=== PATIENT | male | born 1955 | race African-American/Black ===

== ENCOUNTER 2021-11-03 18:03 | Inpatient (IN) | payer MEDICAID, SELFPAY ==
[~2021-11-03] VITALS: Ht 170.2 cm; Wt 77.6 kg
[2021-11-03 18:05] VITALS: BP 160/90
--- NOTE | 2021-11-03 18:11 | NUR ---
66 Y/O MALE BIBA FROM STREETS C/O RT KNEE PAIN AND RT SHOULDER. WITH DIZZINESS, NAUSEA, AND GEN WEAKNESS. DENIES ANY RECENT TRAUMA OR INJURY. 06/05 PAIN. PT STATES THIS IS A CHRONIC ISSUE BUT WORSENING TODAY. MEDHX: HTN NKA
--- NOTE | 2021-11-03 19:20 | NUR ---
RECEIVED REPORT FROM CRYS VALDEZ AND JOSIAH VALDEZ FOR CONTINUATION OF CARE.
--- NOTE | 2021-11-03 19:20 | NUR ---
Pt report given to LUCA RN. Transfer of care at this time.
[2021-11-03] MEDS ORDERED: IBUPROFEN 800 MG TAB PO ONE (19:35)
--- NOTE | 2021-11-03 19:39 | NUR ---
RADIOLOGY AT BEDSIDE
--- NOTE | 2021-11-03 20:20 | NUR ---
D/C CATHETER, TIP IN TACT, DEFLATED 10CC IN THE BALLOON.- PATIENT TOLERATED WELL.
[2021-11-03 20:47] LABS: BASOPHILS # (AUTO) 0.1 K/uL (0.00-0.22); BASOPHILS % (AUTO) 1.3 % (0.0-2.0); EOSINOPHILS # (AUTO) 0.1 K/uL (0-0.4); EOSINOPHILS % (AUTO) 0.6 % (0.0-4.0); HEMATOCRIT 20.4 % (36-52); LYMPHOCYTES # (AUTO) 1.3 K/uL (2.0-11.5); LYMPHOCYTES % (AUTO) 12.4 % (20.5-51.1); MEAN CORPUSCULAR HEMOGLOBIN 31 pg (27-31); MEAN CORPUSCULAR HGB CONC 33 g/dL (33-37); MEAN CORPUSCULAR VOLUME 92.7 fL (80-94); MONOCYTES # (AUTO) 0.9 K/uL (0.8-1.0); MONOCYTES % (AUTO) 8.7 % (1.7-9.3); NEUTROPHILS # (AUTO) 8.3 K/uL (1.8-7.7); PLATELET COUNT (AUTO) 489 K/uL (140-450); RED CELL DISTRIBUTION WIDTH 18.9 % (11.6-13.7); WHITE BLOOD COUNT (AUTO) 10.8 K/uL (4.8-10.8)
--- NOTE | 2021-11-03 21:12 | NUR ---
UA COLLECTED AND WALKED TO LAB
[2021-11-03 21:20] LABS: APPEARANCE,URINE HAZY (CLEAR); BILIRUBIN,URINE NEGATIVE (NEGATIVE); BLOOD, URINE 3+ (NEGATIVE); COLOR,URINE YELLOW (YELLOW); LEUKOCYTE ESTERASE ,URINE 3+ (NEGATIVE); NITRITE, URINE NEGATIVE (NEGATIVE); UGLUCOSE NEGATIVE (NEGATIVE)
--- NOTE | 2021-11-03 21:30 | NUR ---
Mellisa mills in [facility] - 11/03/21 at 2154 by ANNAMARIE MARYSE MOJICA, REMOVED SOILED CLOTHES
--- NOTE | 2021-11-03 21:30 | NUR ---
PROVIDED EZE CARE, REMOVED SOILED CLOTHES
[2021-11-03 21:34] LABS: ALBUMIN 1.7 g/dL (3.4-5.0); ANION GAP 10.6 (8-16); CARBON DIOXIDE 25.3 mmol/L (21-32); CREATININE 0.6 mg/dL (0.6-1.3); MAGNESIUM 1.4 mg/dL (1.8-2.4); POTASSIUM 3.9 mmol/L (3.5-5.1); TOTAL BILIRUBIN 0.6 mg/dL (0.0-1.0)
[2021-11-03 21:35] LABS: RBC,URINE 0-5 /HPF (0-5); WBC,URINE 0-5 /HPF (0-5)
--- NOTE | 2021-11-03 21:35 | NUR ---
# 16 FR Urinary catheter inserted utilizing sterile technique. Immediate return of 20 ml urine noted. Urine sample collected and sent to lab. Pt tolerated procedure well.
[2021-11-03] MEDS ORDERED: MAGNESIUM OXIDE 400 MG TAB PO ONE (21:40)
[2021-11-03] MEDS ORDERED: SULFAMETH/TRIMETH DS 800/160MG 1 TAB PO ONE (21:40)
[2021-11-03 22:23] LABS: HEMOGLOBIN 6.7 g/dL (12.0-18.0)
[2021-11-03 23:43] LABS: PROTHROMBIN TIME 12.1 secs (10.8-13.4)
[2021-11-04] VITALS (11 sets, daily range): BP systolic 91–136; BP diastolic 52–73
--- NOTE | 2021-11-04 00:10 | NUR ---
IV ESTABLISHED , 20G RIGHT FA
--- NOTE | 2021-11-04 00:14 | NUR ---
KVNG COLLECTED AND WALKED TO LAB
--- NOTE | 2021-11-04 00:50 | NUR ---
wounds on the sacral and right buttocks present on arrival. wound care of 40mls of NS and placed nonadherent dressing on sacram. patient tolerated well.
--- NOTE | 2021-11-04 01:14 | NUR ---
Patient will be admitted to care of Jeanine GUADALUPE. Admited to telemetry. Will go to room 104B. Belongings list completed. Report to Christine VALDEZ.
--- NOTE | 2021-11-04 01:40 | NUR ---
PATIENT ARRIVED VIA GURNEY. PT IS AAOX4 IRISH SPEAKING ONLY. RESPIRATIONS ARE EQUAL AND UNLABORED ON ROOM AIR. SKIN IS WARM, DRY NON INTACT. R/L BUTTOCK WOUND. PICTURES TAKEN IN ER. BLE EDEMA +4 ON L LEG AND +3 ON R LEG. ABD ROUND AND SOFT. LBM 11/03. MRSA SWAB OBTAINED AND SENT TO LAB. VSS. DX UTI, ANEMIA. PER PT ABLE TO WALK BUT HAS GEN WEAKNESS AND DIZZINESS. PER PT USES WALKER. PT IS HOMELESS LIVES IN HIS CAR. WISHES TO TALK TO SW FOR PLACEMENT. EDUCATED PT BLOOD IS READY PER PT HE IS A HOLINESS DOES NOT WANT ANY BLOOD TX. PT THOUGHT HE WAS GOING TO BE TRANSFUSED FROM HIS OWN BLOOD. EDUCATED PT ON REASON BLOOD TX NEEDED PT VERBALIZED UNDERSTANDING. PER PT IF HGB KEEPS DROPPING HE MIGHT CHANGE HIS MIND. ORIENTED PT TO ROOM, STAFF, CALL LIGHT AND VISITING HOURS. ALL NEEDS MET. WILL CONTINUE TO MONITOR.
--- NOTE | 2021-11-04 01:49 | NUR ---
The patient's care was reviewed and supervised by Ya Young RN, RN.
--- NOTE | 2021-11-04 04:18 | NUR ---
VITAL SIGNS ARE WITHIN NORMAL LIMITS. ALL SAFETY MEASURES ARE IN PLACE. WILL CONTINUE TO MONITOR.
--- NOTE | 2021-11-04 06:03 | NUR ---
PATIENT WAS CLEANED AND REPOSITION FOR COMFORT. ALL NEEDS MET. WILL CONTINUE TO MONITOR.
--- NOTE | 2021-11-04 07:26 | NUR ---
GAVE BEDSIDE REPORT TO DAY RN. PT ENDORSED IN STABLE CONDITION.
--- NOTE | 2021-11-04 07:27 | NUR ---
RECEIVED PATIENT FROM HARVEST CREW SUPERVISOR FOR CONTINUITY OF CARE. PATIENT IS A/A/O X4. RESPIRATORY EVEN AND UNLABORED, ON ROOM AIR. NO SIGN OF DISTRESS NOTED. SKIN WARM, DRY, NON DIAPHORETIC. IV ON LEFT FA 20G, INTACT AND PATENT, SALINE LOCK. PATIENT COMPLAINS OF PAIN ON ADAM KNEE 06/05. DENIES ANY CHEST PAIN OR SOB. ABLE TO MAKE NEED KNOWN. PLAN OF CARE DISCUSSED, PATIENT VERBALIZED UNDERSTANDING. WILL NOTIFY MD REGARDING PAIN AND PT REFUSED BLOOD TRANSFUSION. CALL LIGHT WITHIN REACH. WILL CONTINUE TO MONITOR.
--- NOTE | 2021-11-04 09:12 | NUR ---
PATIENT HAS BEEN SCREENED AND CATEGORIZED HIGH NUTRITION RISK. PATIENT WILL BE SEEN WITHIN 1-2 DAYS OF ADMISSION. /08/17 RECEIVED CONSULT AND REFERRAL FOR UNHEALED WOUNDS GEOVAN[address] BUTT RD
[2021-11-04] MEDS ORDERED: SODIUM PHOS / POTASSIUM PHOS 1 PKT PDR PO PRN (09:20)
[2021-11-04] MEDS ORDERED: POTASSIUM CHLORIDE 10 MEQ TABER PO PRN (09:20)
[2021-11-04] MEDS ORDERED: DOCUSATE SODIUM 100 MG GELCAP PO PRN (09:20)
[2021-11-04] MEDS ORDERED: ONDANSETRON 4 MG/2 ML VIAL IM/IVP PRN (09:20)
[2021-11-04] MEDS: PANTOPRAZOLE 40 MG TABEC PO SCH (09:44)
[2021-11-04] MEDS: MORPHINE SULFATE 2 MG/ML SYR IVP PRN (09:45)
[2021-11-04] MEDS: MAGNESIUM OXIDE 400 MG TAB PO PRN (09:45)
--- NOTE | 2021-11-04 09:45 | NUR ---
SCHEDULE MEDICATIONS GIVEN WITH EDUCATION, PATIENT VERBALIZED UNDERSTANDING. PATIENT TOLERATED WELL. NO SIGN OF DISTRESS NOTED. PRECAUTION IN PLACE. CALL LIGHT WITHIN REACH. WILL CONTINUE TO MONITOR.
[2021-11-04 10:30] LABS: ANION GAP 10.5 (8-16); CARBON DIOXIDE 28.1 mmol/L (21-32); CREATININE 1.1 mg/dL (0.6-1.3); POTASSIUM 4.6 mmol/L (3.5-5.1)
[2021-11-04 10:34] LABS: MAGNESIUM 1.8 mg/dL (1.8-2.4); PHOSPHORUS 4.3 mg/dL (2.5-4.9)
[2021-11-04 10:40] LABS: BASOPHILS # (AUTO) 0.1 K/uL (0.00-0.22); BASOPHILS % (AUTO) 1.6 % (0.0-2.0); EOSINOPHILS % (AUTO) 0.7 % (0.0-4.0); HEMATOCRIT 29.8 % (36-52); HEMOGLOBIN 9.6 g/dL (12.0-18.0); LYMPHOCYTES # (AUTO) 1.5 K/uL (2.0-11.5); LYMPHOCYTES % (AUTO) 28.6 % (20.5-51.1); MEAN CORPUSCULAR HEMOGLOBIN 31 pg (27-31); MEAN CORPUSCULAR HGB CONC 32 g/dL (33-37); MEAN CORPUSCULAR VOLUME 95.6 fL (80-94); MONOCYTES # (AUTO) 0.2 K/uL (0.8-1.0); MONOCYTES % (AUTO) 4.2 % (1.7-9.3); NEUTROPHILS # (AUTO) 3.4 K/uL (1.8-7.7); NEUTROPHILS % (AUTO) 64.9 % (42.2-75.2); PLATELET COUNT (AUTO) 746 K/uL (140-450); RED BLOOD CELL COUNT(AUTO) 3.11 MIL/uL (4.20-6.10); RED CELL DISTRIBUTION WIDTH 18.3 % (11.6-13.7); WHITE BLOOD COUNT (AUTO) 5.2 K/uL (4.8-10.8)
[2021-11-04 11:46] LABS: AMYLASE 50 U/L (25-115); LIPASE 17 U/L (73-393)
--- NOTE | 2021-11-04 11:46 | NUR ---
WOUND CARE EVALUATION NOTE: SKIN ASSESSMENT DONE TO THIS 66 Y/O PT. AAX4 AMBULATORY, WALKS TO BR AND BACK TO HIS BED, ABLE TO TURN AND REPOSITION BY HIMSELF. PT ADMITTED WITH SEVERE MOISTURES ASSOCIATED DERMATITIS TO SACRAL AND BUTTOCK WITH LARGEST TO LEFT BUTTOCK 11X8CM PARTIAL THICKNESS SKIN LOSS, WOUND BED PINK AND PALE WITH SCATTERED FRICTION DENUDED SKIN. A SKIN GROWTH 1.5CM TALL TO RIGHT INNER BUTTOCK, DRY, EZE-WOUND SKIN INTACT. POC DISCUSSED WITH PRIMARY RN. RECOMMENDATIONS: CLEANSE SACRALCOCCYX AND BUTTOCKS WITH MILD SOAP AND WATER, PAT DRY, APPLY CALMOSEPTINE CR.BID AND PRN IF SOILING.
--- NOTE | 2021-11-04 11:57 | NUR ---
MD AT BEDSIDE TO EXPLAIN THE BENEFIT AND RISK OF PROCEDURE. TEXTILE ENGINEER #[id number], PATIENT SIGNED CONSENT FOR CT ABD/PELVIS WITH CONTRAST, RN SIGNED WITNESS. PATIENT VERBALIZED UNDERSTANDING AND HAS NO QUESTIONS.
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
--- NOTE | 2021-11-04 13:20 | NUR ---
PATIENT IS RESTING IN BED, NO SIGN OF DISTRESS NOTED. AROUSABLE TO VOICE. CALL LIGHT WITHIN REACH. WILL CONTINUE TO MONITOR.
--- NOTE | 2021-11-04 15:30 | NUR ---
PATIENT IS RESTING IN BED, NO SIGN OF DISTRESS NOTED. AROUSABLE TO VOICE. PRECAUTION IN PLACE. CALL LIGHT WITHIN REACH. WILL CONTINUE TO MONITOR.
[2021-11-04] MEDS: FERROUS SULFATE 325 MG TABEC PO SCH (16:06)
--- NOTE | 2021-11-04 16:06 | NUR ---
PATIENT REFUSED FERROUS SULFATE 325MG PO. EDUCATION GIVEN, PATIENT VERBALIZED UNDERSTANDING. CALL LIGHT WITHIN REACH. WILL CONTINUE TO MONITOR.
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
--- NOTE | 2021-11-04 18:49 | NUR ---
UPDATE PATIENT'S CONDITION TO DR GRIMALDO, DR RIZZO, TORAlthea D5NG @100ML/HR. WILL FOLLOW ORDER.
[2021-11-04 18:53] LABS: BASOPHILS # (AUTO) 0.1 K/uL (0.00-0.22); HEMATOCRIT 25.7 % (36-52); HEMOGLOBIN 8.3 g/dL (12.0-18.0); LYMPHOCYTES # (AUTO) 0.4 K/uL (2.0-11.5); LYMPHOCYTES % (AUTO) 5.1 % (20.5-51.1); MEAN CORPUSCULAR HEMOGLOBIN 30 pg (27-31); MEAN CORPUSCULAR HGB CONC 32 g/dL (33-37); MEAN CORPUSCULAR VOLUME 92.8 fL (80-94); MONOCYTES # (AUTO) 0.3 K/uL (0.8-1.0); MONOCYTES % (AUTO) 3.5 % (1.7-9.3); NEUTROPHILS # (AUTO) 7.3 K/uL (1.8-7.7); NEUTROPHILS % (AUTO) 90.4 % (42.2-75.2); PLATELET COUNT (AUTO) 567 K/uL (140-450); RED BLOOD CELL COUNT(AUTO) 2.77 MIL/uL (4.20-6.10); RED CELL DISTRIBUTION WIDTH 18.2 % (11.6-13.7); WHITE BLOOD COUNT (AUTO) 8.1 K/uL (4.8-10.8)
[2021-11-04] MEDS: DEXT 5% /NACL 0.9% 1,000 ML IV SCH (18:54)
--- NOTE | 2021-11-04 19:12 | NUR ---
ENDORSED PATIENT TO [place] NURSE FOR CONTINUITY OF CARE. PATIENT IS STABLE.
--- NOTE | 2021-11-04 19:15 | NUR ---
RECEIVED REPORT FROM DAY SHIFT NURSE, ASSUMED CARE. PT IN BED BREATHING AT RA O2 SAT 98% BREATHING EVEN AND UNLABORED WITH NO SIGNS OF ACUTE DISTRESS, BILATERAL CLEAR LUNG SOUNDS. PT A0X4 WITH COMPLAINT OF ABDOMINAL PAIN HE RATES 10/10 AND STATES HE HAS HAD FOR THE LAST YEAR, OFFERED PRN PAIN MEDICATION BUT PT REFUSED AT THIS MOMENT. L FOREARM 20 G IV SITE IN PLACE WITH D5 NS RUNNING AT 100 ML/HR. BILATERAL LOWER EXTREMITY PITTING EDEMA NOTED. ALL SAFETY MEASURES IN PLACE, CALL LIGHT WITHIN REACH, WILL CONTINUE TO CLOSELY MONITOR AND FOLLOW POC.
[2021-11-04 20:25] LABS: ALBUMIN 1.7 g/dL (3.4-5.0); ANION GAP 12.8 (8-16); CARBON DIOXIDE 24.8 mmol/L (21-32); CREATININE 1.1 mg/dL (0.6-1.3); POTASSIUM 4.6 mmol/L (3.5-5.1); TOTAL BILIRUBIN 0.6 mg/dL (0.0-1.0)
[2021-11-04] MEDS: PIPERACILLIN/TAZOBACTAM 3.375 GM in DEXTROSE 5% 50 ML IV SCH (20:29)
--- NOTE | 2021-11-04 22:00 | NUR ---
PT RESTING COMFORTABLY IN BED WITH EYES CLOSED IN NO APPARENT ACUTE DISTRESS. PT CONTINUES TO REFUSE PRN PAIN MEDICATION FOR ABDOMINAL PAIN EVEN THOUGH HE STATES HE ALWAYS HAS PAIN INCLUDING NOW. CONTINUES AT RA, BILATERAL EVEN BREATHING. BP 96/59. WILL CONTINUE TO CLOSELY MONITOR AND FOLLOW POC. ALL SAFETY MEASURES IN PLACE.
[2021-11-05] VITALS: BP 101/61
--- NOTE | 2021-11-05 00:13 | NUR ---
REPORT GIVEN TO MST NURSE FOR TRANSFER OF CARE. PT IN STABLE CONDITION WITH NO SIGNS OF ACUTE DISTRESS, BREATHING AT RA. ALL SAFETY MEASURES IN PLACE.
--- NOTE | 2021-11-05 00:15 | NUR ---
RCEIVED REPORT AT BEDSIDE.PT'S CONDITION IS STABLE.IVF INFUSING WELL.CALL LIGHT IN REACH.F/C PATENT.NO C/O PAIN NOW.WILL CONTINUE MONITORING.HR IS ST.
[2021-11-05] MEDS: MENTHOL/ZINC OXIDE 113 GM TUBE TP SCH ×2 (01:30→13:34)
--- NOTE | 2021-11-05 02:00 | NUR ---
FB=[id number]
[2021-11-05 02:13] LABS: BARBITURATE, URINE NEGATIVE ng/ml (NEG <=200); BENZODIAZEPINE, URINE POSITIVE ng/mL (NEG <=200); CANNABINOID, URINE NEGATIVE ng/mL (NEG <=50); COCAINE, URINE NEGATIVE ng/mL (NEG <=300); OPIATE, URINE POSITIVE ng/mL (NEG <=2000); PHENCYCLIDINE SCREEN,URINE NEGATIVE ng/mL (NEG <=25)
[2021-11-05 04:00] VITALS: BP 97/60
--- NOTE | 2021-11-05 04:00 | NUR ---
BP=97/60.PT IS ASYMPTOMATIC HR IS ST.SLEEPING.
[2021-11-05] MEDS: PIPERACILLIN/TAZOBACTAM 3.375 GM in DEXTROSE 5% 50 ML IV SCH ×4 (04:36→21:29)
[2021-11-05] MEDS: DEXT 5% /NACL 0.9% 1,000 ML IV SCH ×2 (06:00→15:20)
--- NOTE | 2021-11-05 06:36 | NUR ---
BP AT 0600 AM=.IVF IS IN PROGRESS.
--- NOTE | 2021-11-05 07:29 | NUR ---
REPORT GIVEN TO JC RN.PT'S CONDITION STABLE.
--- NOTE | 2021-11-05 07:30 | NUR ---
REPORT RECEIVED FROM PM SHIFT FOR CONTINUITY OF CARE, PT APPEARS ASLEEP, SAFETY MEASURES MAINTAINED, CALL LIGHT WITHIN REACH, WILL CONTINUE TO MONITOR
[2021-11-05 07:47] LABS: ANION GAP 10.6 (8-16); CREATININE 1.1 mg/dL (0.6-1.3); POTASSIUM 4.6 mmol/L (3.5-5.1)
[2021-11-05 08:00] VITALS: BP 93/59
[2021-11-05] MEDS: FERROUS SULFATE 325 MG TABEC PO SCH ×2 (08:52→17:00)
[2021-11-05] MEDS: TAMSULOSIN 0.4 MG CAP PO SCH (08:52)
[2021-11-05] MEDS: FINASTERIDE 5 MG TAB PO SCH (08:52)
[2021-11-05] MEDS: PANTOPRAZOLE 40 MG TABEC PO SCH (08:52)
[2021-11-05 09:09] LABS: HEMATOCRIT 25.8 % (36-52); HEMOGLOBIN 8.2 g/dL (12.0-18.0); MEAN CORPUSCULAR HEMOGLOBIN 30 pg (27-31); MEAN CORPUSCULAR HGB CONC 32 g/dL (33-37); MEAN CORPUSCULAR VOLUME 95.3 fL (80-94); PLATELET COUNT (AUTO) 516 K/uL (140-450); RED CELL DISTRIBUTION WIDTH 18.5 % (11.6-13.7); WHITE BLOOD COUNT (AUTO) 9.2 K/uL (4.8-10.8)
--- NOTE | 2021-11-05 10:05 | NUR ---
BP 98/62
[2021-11-05 11:17] LABS: BASOPHILS % (MANUAL) 0 % (0-2); BLASTS, MANUAL % 0 % (0-0); EOSINOPHILS % (MANUAL) 0 % (0-4); LYMPHOCYTES % (MANUAL) 4 % (20-46); METAMYELOCYTES % 0 % (0-0); MONOCYTES % (MANUAL) 3 % (5-12); MYELOCYTES % 0 % (0-0); OTHER CELLS,MANUAL % 0 (0-0); PROMYELOCYTES % 0 % (0-0)
[2021-11-05 11:20] LABS: BUFFY COAT SMEAR PREP 0
[2021-11-05 12:00] VITALS: BP 101/60
--- NOTE | 2021-11-05 13:52 | NUR ---
11/05/21 RD INITIAL ASSESSMENT COMPLETED PLEASE REFER TO NUTRITION ASSESSMENT UNDER CARE ACTIVITY FOR ESTIMATED NUTRITIONAL NEEDS. RD RECOMMENDATIONS: 1. IF/WHEN PT IS MEDICALLY STABLE TO START ORAL INTAKE, CONSIDER LOW NA DIET. 2. RD WILL F/U 2-3 DAYS; HIGH RISK JACE ALANIZ, RD
[2021-11-05 16:00] VITALS: BP 99/62
--- NOTE | 2021-11-05 18:00 | NUR ---
BP 126/74
--- NOTE | 2021-11-05 19:20 | NUR ---
RECIEVED PT AAOX4 , IV SITE INTACT AND PATENT , DENIES PAIN AT THIS TIME , NPO EXCEPT MEDS , URINE FC INTACT AND CONNECTING TO URINE BAG DRAINING BIT CONCENTRATED U.O . PLAN OF CARE DISCUSSED AND VERBALIZES UNDERSTANDING , CALL LIGHT WITHIN REACH , ON TELE MONITOR . WILL CONT. TO MONITOR .
--- NOTE | 2021-11-05 19:45 | NUR ---
HR 133 ON TELE MONITOR - RE CHECK BP 108/67 BP MEAN 80 , DENIES PAIN , AAOX4 , WILL CONT. TO MONITOR . IVF INFUSING WELL
[2021-11-05 20:00] VITALS: BP 108/67
[2021-11-05] MEDS: ACETAMINOPHEN 325 MG TAB PO PRN (21:45)
--- NOTE | 2021-11-05 22:05 | NUR ---
TELE MONITOR TRACING : HR 167 , 4 IN A ROW VENTRICULAR BEATS , FEBRILE 100.8 - INFORMED DR. DYE - PER DR. DYE CONT. TO MONITOR , CALL LIGHT WITHIN REACH.
[2021-11-06] VITALS: BP 123/67
--- NOTE | 2021-11-06 | NUR ---
TEMP RE CHECK 98.8 BP 128/70 - DENIES PAIN - WILL CONT. TO MONITOR . O2 SAT 95 %
--- NOTE | 2021-11-06 00:16 | NUR ---
BP RE CHECK 106/ 65 BP MEAN 76 , O2 SAT 100 % , FL 96 , FLACC 0 , TEMP RE CHECK 98 .7 - WILL CONT. TO MONITOR . Addendum: 11/06/21 at 0020 by Kimberley Lantigua RN THE ABOVE NURSE'S NOTE IS AN ERROR ENTRY - CARLEE
[2021-11-06] MEDS: DEXT 5% /NACL 0.9% 1,000 ML IV SCH ×3 (00:35→20:45)
[2021-11-06] MEDS: MENTHOL/ZINC OXIDE 113 GM TUBE TP SCH ×2 (01:12→13:00)
[2021-11-06 04:00] VITALS: BP 130/70
--- NOTE | 2021-11-06 04:00 | NUR ---
ROUNDS , NO SIGNS OG DISTRESS NOTED AT THIS TIME .
[2021-11-06] MEDS: PIPERACILLIN/TAZOBACTAM 3.375 GM in DEXTROSE 5% 50 ML IV SCH ×3 (06:00→20:36)
--- NOTE | 2021-11-06 06:00 | NUR ---
C/O PAIN WILL MEDICATE . , BP 130/90 O2 SAT 97 %
[2021-11-06] MEDS: HYDROcodone/APAP 5/325 MG 1 TAB TAB PO PRN (06:59)
[2021-11-06 07:09] LABS: BASOPHILS % (AUTO) 0.3 % (0.0-2.0); EOSINOPHILS % (AUTO) 0.2 % (0.0-4.0); HEMATOCRIT 26.4 % (36-52); HEMOGLOBIN 8.4 g/dL (12.0-18.0); LYMPHOCYTES # (AUTO) 0.6 K/uL (2.0-11.5); MEAN CORPUSCULAR HEMOGLOBIN 30 pg (27-31); MEAN CORPUSCULAR HGB CONC 32 g/dL (33-37); MONOCYTES # (AUTO) 0.4 K/uL (0.8-1.0); MONOCYTES % (AUTO) 2.9 % (1.7-9.3); NEUTROPHILS # (AUTO) 12.6 K/uL (1.8-7.7); PLATELET COUNT (AUTO) 433 K/uL (140-450); RED BLOOD CELL COUNT(AUTO) 2.78 MIL/uL (4.20-6.10); RED CELL DISTRIBUTION WIDTH 18.7 % (11.6-13.7); WHITE BLOOD COUNT (AUTO) 13.6 K/uL (4.8-10.8)
[2021-11-06 07:25] LABS: ALBUMIN 1.6 g/dL (3.4-5.0); ANION GAP 10.8 (8-16); CARBON DIOXIDE 26.4 mmol/L (21-32); MAGNESIUM 1.6 mg/dL (1.8-2.4); PHOSPHORUS 4.8 mg/dL (2.5-4.9); POTASSIUM 4.2 mmol/L (3.5-5.1); TOTAL BILIRUBIN 0.5 mg/dL (0.0-1.0)
--- NOTE | 2021-11-06 07:29 | NUR ---
ENDORSED - PT -STABLE - AWAKE .
--- NOTE | 2021-11-06 07:29 | NUR ---
RECEIVEDE REPORT FROM PM SHIFT JOSÉ MIGUEL PANTOJA FOR CONTINUITY OF CARE. PT. ALERT, AWAKE. VERBALLY RESPONSIVE. NO NOTED DISTRESS. BREATHINGS EVEN AND UNLABORED. ALL SAFETY PRECAUTIONS IN PLACE. CALL LIGHT WITHIN REACH. PT. IS WITH LOW H&H LEVEL. BUT PT. REFUSED FOR BLOOD TRANSFUSION PER REPORT. WILL CONTINUE TO MONITOR THE PT.
[2021-11-06 08:00] VITALS: BP 126/71
[2021-11-06 08:04] LABS: LYMPHOCYTES % (AUTO) 4.4 % (20.5-51.1); NEUTROPHILS % (AUTO) 92.2 % (42.2-75.2)
[2021-11-06] MEDS: FERROUS SULFATE 325 MG TABEC PO SCH ×2 (08:11→16:50)
[2021-11-06] MEDS: FINASTERIDE 5 MG TAB PO SCH (08:11)
[2021-11-06] MEDS: MAGNESIUM OXIDE 400 MG TAB PO PRN (08:12)
[2021-11-06] MEDS: TAMSULOSIN 0.4 MG CAP PO SCH (08:12)
[2021-11-06] MEDS: PANTOPRAZOLE 40 MG TABEC PO SCH (08:12)
--- NOTE | 2021-11-06 09:11 | NUR ---
PT. COMFORTABLY RESTING. NO S/SX OF DISTRESS NOTED. DENIES PAIN AT THIS TIME. ADMINISTERED SCHEDULED MEDICATIONS DUE. PT. TOLERATED WELL. ALSO MAGNESIUM OXIDE PO MGIVEN PRN ORDER FOR MAGNESIUM LEVEL 1.6 TODAY. . WILL CONTINUE TO MONITOR THE PT.
--- NOTE | 2021-11-06 09:17 | NUR ---
Faxed transfer requests via fax to [facility] and [facility] [place]. Awaiting call back
[2021-11-06 12:00] VITALS: BP 143/77
--- NOTE | 2021-11-06 13:50 | NUR ---
ROUNDS. PT. SLEEPING. WITH NO S/SX OF DISTRESS NOTED. RESP. NORMAL. SAFETY PRECAUTIONS IN PLACE. CALL LIGHT WITHI N REACH. WILL CONTINUE TO MONITOR THE PT.
--- NOTE | 2021-11-06 15:06 | NUR ---
[facility] [place] NO BED AVAILABILITY
--- NOTE | 2021-11-06 15:29 | NUR ---
PT. WAS USING RESTROOM. NOTED FOLY CATHETER WAS OUT. PER PT. SAID IT CAME OUT IT SELF. NO ANY BLEEDING OBSERVED. ALSO PT. PULLED OUT PIV ACCESS. CALLED UROLOGIST DR. FUENTES AND LEFT VOICE MAIL RE. PT'S FOLY CATHETER IS OUT. AWAITING FOR CALL BACK. WILL FOLLOW UP WITH .
--- NOTE | 2021-11-06 17:17 | NUR ---
PT. ALERT, AWAKE. STABLE WITH NC 2 L. NO ANY DISTRESS NOTED. REINSERTED PIV ACCESS ON LFA. PT. TOLERATED WELL. GOOD FLUSHED AND BLOOD RETURNED. CONT. MONITORING THE PT.
--- NOTE | 2021-11-06 17:23 | NUR ---
DR. FAY FUENTES UROLOGIST REPLIED BACK RE. PT'S FOLY CATH WAS OUT. SAID OK. AND TO MONITOR FOR PT. VOIDING. WILL MONITOR FOR IF PT. CAN VOID. AND WILL FOLLOW UP WITH .
[2021-11-06 17:53] VITALS: BP 131/66
--- NOTE | 2021-11-06 19:25 | NUR ---
ENDORSED REPORT TO PM SHIFT RN FOR CONTINUITY OF CARE. PT. STABLE.
--- NOTE | 2021-11-06 19:45 | NUR ---
RECEIVED BEDSIDE REPORT FROM DAY SHIFT NURSE, PATIENT IS AWAKE, RESPIRATION EVEN UNLABORED ON 2L NC O2. NO DISTRESS NOTED. SKIN IS WARM AND DRY. IV PATENT AND INTACT. NO MARTINEZ CATHETER NOTED. PLAN OF CARE DISCUSSED. ALL SAFETY MEASURES IN PLACE. BED IS AT LOW POSITION. CALL LIGHT WITHIN REACH WILL CONTINUE TO MONITOR.
[2021-11-06 20:00] VITALS: BP 116/88
--- NOTE | 2021-11-06 20:36 | NUR ---
ALL SCHEDULED MEDS WERE GIVEN PER ORDER. WILL CONTINUE TO MONITOR.
[2021-11-06] MEDS: MORPHINE SULFATE 2 MG/ML SYR IVP PRN (23:58)
--- NOTE | 2021-11-06 23:58 | NUR ---
PATIENT COMPLAINED OF LOWER ABDOMINAL PAIN 02/03. PRN PAIN MEDS GIVEN PER ORDER. CHECKED PATIENT BLADDER BY USING BLADDER SCAN, NOTED >510ML URINE. PER DR. FUENTES IF URINE IS >400 OKAY TO REINSERT MARTINEZ CATHETER.
[2021-11-07] VITALS: BP 144/68
--- NOTE | 2021-11-07 | NUR ---
PER DR. FUENTES IF PATIENT BLADDER SCAN RESULT >400 URINE RE-INSERT MARTINEZ CATHETER. INSERT MARTINEZ CATHETER 16FR, STERILE TECHNIQUE APPLIED. PATIENT TOLERATED IT WELL. YELLOW URINE NOTED DRAINING IN THE BAG. WILL CONTINUE TO MONITOR.
--- NOTE | 2021-11-07 01:00 | NUR ---
WOUND CARE PROVIDED
[2021-11-07] MEDS: MENTHOL/ZINC OXIDE 113 GM TUBE TP SCH ×2 (01:01→12:56)
--- NOTE | 2021-11-07 03:31 | NUR ---
MADE ROUNDS PATIENT SLEEPING RESPIRATION EVEN UNLABORED ON 2L NC O2. NO DISTRESS NOTED
[2021-11-07 04:00] VITALS: BP 136/80
--- NOTE | 2021-11-07 04:18 | NUR ---
PATIENT PULLED OUT HIS IV, NO ACTIVE BLEEDING NOTED. INSERT NEW ONE ON THE RIGHT UPPER FA 20G. WILL CONTINUE TO MONITOR
--- NOTE | 2021-11-07 04:28 | NUR ---
AM CARE PROVIDED
[2021-11-07] MEDS: PIPERACILLIN/TAZOBACTAM 3.375 GM in DEXTROSE 5% 50 ML IV SCH ×3 (04:36→20:27)
[2021-11-07 07:00] LABS: ALBUMIN 1.5 g/dL (3.4-5.0); CARBON DIOXIDE 27.2 mmol/L (21-32); POTASSIUM 4.2 mmol/L (3.5-5.1); TOTAL BILIRUBIN 0.5 mg/dL (0.0-1.0)
--- NOTE | 2021-11-07 07:23 | NUR ---
ENDORSED PATIENT TO DAY SHIFT NURSE FOR CONTINUITY OF CARE
--- NOTE | 2021-11-07 07:25 | NUR ---
RECEIVED REPORT FROM FORENSIC INVESTIGATOR NURSE FOR CONTINUITY OF CARE. PT AWAKE IN BED. ON O2 AT 2L NC, BREATHING SYMMETRICAL. PT NOTED WITH EPISODE OF REMOVING NC. DENIES PAIN AT THIS TIME. WITH RFA 22G RUNNING D5NS AT 100CC/HR. MARTINEZ CATHETER INTACT AND PATENT, DRAINING YELLOW URINE. BED ALARM ACTIVATED. CALL LIGHT WITHIN REACH. ALL SAFETY MEASURES IN PLACE.
[2021-11-07 07:33] LABS: BASOPHILS # (AUTO) 0.1 K/uL (0.00-0.22); BASOPHILS % (AUTO) 0.6 % (0.0-2.0); EOSINOPHILS % (AUTO) 0.2 % (0.0-4.0); HEMATOCRIT 24.9 % (36-52); LYMPHOCYTES # (AUTO) 0.4 K/uL (2.0-11.5); LYMPHOCYTES % (AUTO) 4.1 % (20.5-51.1); MEAN CORPUSCULAR HEMOGLOBIN 30 pg (27-31); MEAN CORPUSCULAR HGB CONC 32 g/dL (33-37); MEAN CORPUSCULAR VOLUME 94.3 fL (80-94); MONOCYTES # (AUTO) 0.5 K/uL (0.8-1.0); MONOCYTES % (AUTO) 4.4 % (1.7-9.3); NEUTROPHILS # (AUTO) 9.9 K/uL (1.8-7.7); NEUTROPHILS % (AUTO) 90.7 % (42.2-75.2); PLATELET COUNT (AUTO) 367 K/uL (140-450); RED BLOOD CELL COUNT(AUTO) 2.64 MIL/uL (4.20-6.10); RED CELL DISTRIBUTION WIDTH 18.6 % (11.6-13.7); WHITE BLOOD COUNT (AUTO) 10.9 K/uL (4.8-10.8)
[2021-11-07 08:00] VITALS: BP 135/79
[2021-11-07] MEDS: TAMSULOSIN 0.4 MG CAP PO SCH (08:23)
[2021-11-07] MEDS: FINASTERIDE 5 MG TAB PO SCH (08:23)
[2021-11-07] MEDS: FERROUS SULFATE 325 MG TABEC PO SCH ×2 (08:23→17:33)
[2021-11-07] MEDS: PANTOPRAZOLE 40 MG TABEC PO SCH (08:24)
[2021-11-07] MEDS: DEXT 5% /NACL 0.9% 1,000 ML IV SCH ×2 (08:27→16:45)
--- NOTE | 2021-11-07 08:31 | NUR ---
CLARIFIED WITH DR DYE , NPO ORDER IF OK TO GIVE MEDS. PER OKAY TO GIVE MEDS. WILL CHANGE ORDER TO NPO EXCEPT MEDS.
--- NOTE | 2021-11-07 11:30 | NUR ---
PT HAS EPISODES OF REMOVING SECURE TAPE FOR MARTINEZ CATHETER, EXPLAINED TO PT IMPORTANCE OF TAPE AND ENCOURAGED NOT TO REMOVE. ALSO REMOVING HIS HOSTLER HELPER LEADS. FREQUENT ROUNDS DONE, WILL CONTINUE TO MONITOR.
[2021-11-07 12:00] VITALS: BP 125/83
--- NOTE | 2021-11-07 14:18 | NUR ---
PATIENT STATES THAT HE HAS A PAST MEDICAL HX OF ASTHMA DEVELOPMENT TEAM LEAD TO OBTAIN HHN PRN THERAPY WITH DUONEB FOR SOB/WHEEZE
[2021-11-07] MEDS: METOPROLOL 25 MG TAB PO SCH ×2 (14:24→20:27)
[2021-11-07] MEDS: FUROSEMIDE 20 MG/2 ML VIAL IVP SCH (14:24)
[2021-11-07 16:00] VITALS: BP 120/77
--- NOTE | 2021-11-07 16:38 | NUR ---
PT HAS BEEN NPO SINCE 11/04 WITH NO POSSIBLE SURGERY AT THIS TIME, DR DYE MADE AWARE, ORDER FOR REGULAR DIET.
--- NOTE | 2021-11-07 17:10 | NUR ---
PT PULLED OUT HIS RFA IV LINE. RE-INSERTED NEW IV LINE ON LFA 22G, NO S/SX OF INFILTRATION NOTED. INSTRUCTED NOT TO PULL OUT.
--- NOTE | 2021-11-07 19:22 | NUR ---
ENDORSED PT TO KNITTING DEMONSTRATOR NURSE. PT IN STABLE CONDITION
--- NOTE | 2021-11-07 19:30 | NUR ---
RECEIVED BEDSIDE REPORT FROM DAY SHIFT RN FOR CONTINUITY OF CARE. PT IS NOT IN ANY DISTRESS. BREATHING RHYTHMIC AND UNLABORED. FC IN PLACE DRAINING CLEAR YELLOW FLUID. IVF RUNNING PER MD ORDER. CALL LIGHT WITHIN REACH. ALL SAFETY MEASURES TAKEN. WILL CONTINUE TO MONITOR THE PT.
[2021-11-07 20:00] VITALS: BP 104/65
--- NOTE | 2021-11-07 20:30 | NUR ---
ALL DUE MEDS GIVEN. NO ADVERSE REACTION NOTED. WILL CONTINUE TO MONITOR THE PT.
--- NOTE | 2021-11-07 23:10 | NUR ---
PT IS SLEEPING IN BED COMFORTABLY. PT IS NOT IN ANY ACUTE DISTRESS. BREATHING RHYTHMIC AND UNLABORED. COMMUNICATION BOARD UPDATED. IVF RUNNING PER MD ORDER. CALL LIGHT WITHIN REACH. ALL SAFETY MEASURES TAKEN. WILL CONTINUE TO MONITOR THE PT.
--- NOTE | 2021-11-07 23:40 | NUR ---
PT IV BECAME INFILTRATED. NEW IV INSERTED 22 GAUGE RIGHT FOREARM. IVF RUNNING PER MD ORDER. PT HAS NO COMPLAINTS AT THIS TIME. DENIES PAIN. ALL SAFETY MEASURES TAKEN. WILL CONTINUE TO MONITOR THE PT.
[2021-11-08] VITALS (8 sets, daily range): BP systolic 102–154; BP diastolic 60–97
[2021-11-08] MEDS: MENTHOL/ZINC OXIDE 113 GM TUBE TP SCH ×2 (01:11→17:00)
[2021-11-08] MEDS: DEXT 5% /NACL 0.9% 1,000 ML IV SCH ×3 (02:45→20:14)
[2021-11-08] MEDS: PIPERACILLIN/TAZOBACTAM 3.375 GM in DEXTROSE 5% 50 ML IV SCH ×2 (04:41→13:05)
--- NOTE | 2021-11-08 05:00 | NUR ---
PT PULLED OUT IV. CATHETER INTACT. NEW IV INSERTED ON LEFT FOREARM 22 GAUGE.
[2021-11-08 06:53] LABS: BASOPHILS % (AUTO) 0.1 % (0.0-2.0); EOSINOPHILS % (AUTO) 0.1 % (0.0-4.0); HEMATOCRIT 25.6 % (36-52); LYMPHOCYTES # (AUTO) 0.7 K/uL (2.0-11.5); LYMPHOCYTES % (AUTO) 6.6 % (20.5-51.1); MEAN CORPUSCULAR HEMOGLOBIN 30 pg (27-31); MEAN CORPUSCULAR HGB CONC 32 g/dL (33-37); MEAN CORPUSCULAR VOLUME 94.3 fL (80-94); MONOCYTES # (AUTO) 0.7 K/uL (0.8-1.0); MONOCYTES % (AUTO) 6.2 % (1.7-9.3); NEUTROPHILS # (AUTO) 9.6 K/uL (1.8-7.7); PLATELET COUNT (AUTO) 411 K/uL (140-450); RED BLOOD CELL COUNT(AUTO) 2.71 MIL/uL (4.20-6.10); RED CELL DISTRIBUTION WIDTH 19.6 % (11.6-13.7)
--- NOTE | 2021-11-08 07:20 | NUR ---
ENDORSED PT TO DAY SHIFT RN FOR CONTINUITY OF CARE. PT IS STABLE.
[2021-11-08 07:25] LABS: ALBUMIN 1.7 g/dL (3.4-5.0); ANION GAP 11.6 (8-16); CARBON DIOXIDE 26.9 mmol/L (21-32); POTASSIUM 3.5 mmol/L (3.5-5.1); TOTAL BILIRUBIN 0.6 mg/dL (0.0-1.0)
--- NOTE | 2021-11-08 07:43 | NUR ---
RECEIVED REPORT FROM PAPER COATER NURSE FOR CONTINUITY OF CARE. PT AWAKE IN BED, NOTED TO BE MORE CONFUSED AND TALKING TO HIMSELF A LOT BUT DOESN'T MAKE SENSE, LEFT MESSAGE TO DR DYE. NOTED NC OFF, PT ON O2 NC AT 2L, REMINDED NOT TO REMOVE NC. DENIES PAIN AT THIS TIME. MARTINEZ CATHETER INTACT AND PATENT DRAINING YELLOW URINE. BED ALARM ACTIVATED. ALL SAFETY MEASURES IN PLACE. WILL CONTINUE TO MONITOR.
[2021-11-08] MEDS: TAMSULOSIN 0.4 MG CAP PO SCH (08:53)
[2021-11-08] MEDS: METOPROLOL 25 MG TAB PO SCH ×2 (08:53→20:23)
[2021-11-08] MEDS: FINASTERIDE 5 MG TAB PO SCH (08:53)
[2021-11-08] MEDS: FUROSEMIDE 20 MG/2 ML VIAL IVP SCH (08:53)
[2021-11-08] MEDS: FERROUS SULFATE 325 MG TABEC PO SCH ×2 (08:53→17:40)
[2021-11-08] MEDS: PANTOPRAZOLE 40 MG TABEC PO SCH (08:54)
--- NOTE | 2021-11-08 08:56 | NUR ---
DR DYE DOING ROUNDS, MADE AWARE THAT PT IS MORE CONFUSED TODAY AND SEEMS LETHARGIC. ALSO MADE AWARE OF URINE CULTURE SUSCEPTIBILITIES WITH NEW ORDER MADE AND CONSULT WITH DR AC.
[2021-11-08] MEDS ORDERED: LEVOFLOXACIN 750 MG/D5W PREMIX 150 ML IV SCH (09:00)
--- NOTE | 2021-11-08 09:30 | NUR ---
DR AC MADE AWARE OF CONSULT ORDER.
--- NOTE | 2021-11-08 11:30 | NUR ---
RAPID RESPONSE WAS CALLED BY STAFF PT WAS LETHARGIC BUT STILL RESPONSIVE WITH WITH LARGE FIRM DISTENDED ABDOMEN. PT ON O2 VIA NC SATING AT 98% BLOOD SUGAR 138, BP104/66, PT TACHYPNEIC WITH SHALLOW BREATHS. PT HAS LITTLE OUTPUT ON MARTINEZ CATHETER 300cc, PT HAS 2 SUSPECTED BLADDER DIVERTICULUM WITH POSSIBLE FISTULA TRACT TO THE UMBILICUS. CALLED DR FUENTES, CONSULTING UROLOGIST, DIDN'T ANSWER. CALLED DR DYE MADE AWARE STATED TO WAIT FOR DR FUENTES. LEFT MESSAGE TO DR FUENTES.
--- NOTE | 2021-11-08 11:49 | NUR ---
DR FUENTES STATED IT'S OKAY IF CATHETER IS DRAINING, CAN IRRIGATE IF NOT DRAINING.
--- NOTE | 2021-11-08 12:30 | NUR ---
PT IN BED AWAKE WITH CONFUSION, STILL LETHARGIC BUT PT MORE RESPONSIVE AT THIS TIME. STILL NOTED TALKING TO SELF A LOT. BREATHING SHALLOW AND TACHYPNEA, O2 SAT ON 2L NC IS 98-100% DENIES PAIN AT THIS TIME. OFFERED TO ASSIST WITH LUNCH BUT PT DOESN'T WANT TO EAT AT THIS TIME AND STATED LATER. FREQUENT CHECKS DONE, WILL CONTINUE TO MONITOR.
--- NOTE | 2021-11-08 12:35 | NUR ---
11/08/21 RD FOLLOW UP COMPLETED PLEASE REFER TO NUTRITION ASSESSMENT UNDER CARE ACTIVITY FOR ESTIMATED NUTRITIONAL NEEDS. 1. CONTINUE REGULAR DIET TOLERATED 2. RECOMMEND ENSURE CLEAR TID PER RD PROTOCOL -WILL PROVIDE 720 KCAL AND [address] DAILY 3. RD TO FOLLOW-UP 3-5 DAYS, MODERATE RISK GEOVANNA BUTT, RD
--- NOTE | 2021-11-08 14:25 | NUR ---
PT AWAKE IN BED, RESPONSIVE WITH CONFUSION, STILL LETHARGIC BUT RESPONDING MORE. PT STILL BREATHING SHALLOW, TACHYPNEA. ON O2 NC AT 2L, SATING AT 98% FREQUENT CHECKS DONE. OFFERED LUNCH AND ENSURE, STATED LATER. WILL CONTINUE TO MONITOR.
--- NOTE | 2021-11-08 15:00 | NUR ---
PT SEEN BY DR DODSON (PARTY PLAN SALES HOST/HOSTESS) WITH ORDER TO TRANSFER TO ICU AND INSERT PICC LINE. DR DYE MADE AWARE. HIGH MAN AND ICU NURSE MADE AWARE.
--- NOTE | 2021-11-08 15:30 | NUR ---
PT TRANSFERRED TO ICU BED 8, BEDSIDE REPORT GIVEN AT ICU. PT AWAKE, RESPONSIVE BUT STILL LETHARGIC, TACHYPNEIC AND TACHYCARDIAC.
--- NOTE | 2021-11-08 15:45 | NUR ---
RECEIVED REPORT FROM JOSÉ MIGUEL LANG.
--- NOTE | 2021-11-08 16:00 | NUR ---
PATIENT ORIENTED TO NAME, PLACE AND YEAR. ANSWERS QUESTIONS. MOVES ALL EXTREMETIES. HEART SOUNDS REGULAR. ST WITH PVC. O2 AT 2L/NC. SAO2 99%. ANTERIOR/LATERAL BREATH SOUNDS WITH CRACKLES. DIMINISHED IN RIGHT BASE. ABDOMEN DISTENDED, FIRM AND TENDER WITH PALPATION. NO BOWEL SOUNDS AUSCULTATED. MARTINEZ IN PLACE WITH YELLOW URINE. +DP PULSES WITH NO EDEMA NOTED. 22G SALINE LOCK IN LEFT FOREARM.
[2021-11-08] MEDS ORDERED: GENTAMICIN PER PHARMACY MC PRN (16:10)
[2021-11-08] MEDS: AMPICILLIN/SULBACTAM 3 GM in NACL 0.9% 100 ML IV SCH (18:40)
--- NOTE | 2021-11-08 19:04 | NUR ---
PT LAYING IN BED HOB ELEVATED, BS CLEAR DIMINISHED AT BASES, NO SIGNS OF RESPIRATORY DISTRESS NOTED AT THIS TIME. PT IS CURRENTLY SATING 96% ON 3LPM NASAL CANNULA. WILL CONTINUE TO MONITOR.
--- NOTE | 2021-11-08 19:15 | NUR ---
REPORT GIVEN TO JOSÉ MIGUEL REED.
--- NOTE | 2021-11-08 19:30 | NUR ---
RECEIVED BEDSIDE REPORT FROM MORNING NURSE. PATIENT AWAKE, WITH SPONTANEOUS EYE OPENING. PATIENT ALERT TO NAME, BIRTHDAY, PLACE, NOT ALERT TO TIME. BREATHING EVEN AND UNLABORED WITH OXYGEN OF 2L/NC. IV SITE ON LEFT FOREARM , PATENT AND INTACT WITH ONGOING AMPICILLIN ABX. MARTINEZ INTACT, DRAINING YELLOW CLOUDY URINE TO URINE BAG. NO COMPLAINTS AF PAIN AT THIS TIME. WILL CONTINUE TO MONITOR PATIENT.
[2021-11-08] MEDS: GENTAMICIN 120 MG in DEXTROSE 5% 100 ML IV SCH (20:19)
--- NOTE | 2021-11-08 20:30 | NUR ---
2 LUMEN PICC LINE INSERTED BY PICC LINE NURSE. XRAY DONE TO CONFIRM PLACEMENT AND RESULTED TO OKAY TO USE PER PICC LINE RN. PICC LINE PATENT WITH GOOD BLOOD RETURN NOTED, FLUSHED WITH NS. IV FLUID OF D5 NS AT 100ML/HR NOW RUNNING ON THE PICC LINE. WILL CONTINUE TO MONITOR PATIENT.
--- NOTE | 2021-11-08 22:25 | NUR ---
URINE SPECIMEN FOR URINE CULTURE COLLECTED AND SENT TO LAB.
[2021-11-09] VITALS (14 sets, daily range): BP systolic 81–120; BP diastolic 54–75
[2021-11-09] MEDS: AMPICILLIN/SULBACTAM 3 GM in NACL 0.9% 100 ML IV SCH ×4 (00:09→18:40)
[2021-11-09] MEDS: MENTHOL/ZINC OXIDE 113 GM TUBE TP SCH ×2 (00:11→13:25)
--- NOTE | 2021-11-09 00:41 | NUR ---
PATIENT ASLEEP ON BED. NO S/SX OF RESPIRATORY OR CARDIAC DISTRESS. MAINTAINED ON CARDIAC MONITORING.DUE IV ABX GIVEN ORDERED. NO COMPLAINTS OF PAIN. WILL CONTINUE TO MONITOR PATIENT.
--- NOTE | 2021-11-09 05:17 | NUR ---
MORNING CARE RENDERED, GOWN AND LINENS CHANGED. CHG BATH DONE, PERICARE AND CATHETER CARE PROVIDED. NO COMPLAINTS OF PAIN. WILL CONTINUE TO MONITOR PATIENT.
[2021-11-09 05:51] LABS: ALBUMIN 1.4 g/dL (3.4-5.0); ANION GAP 10.3 (8-16); CARBON DIOXIDE 24.2 mmol/L (21-32); POTASSIUM 3.5 mmol/L (3.5-5.1); TOTAL BILIRUBIN 0.3 mg/dL (0.0-1.0)
[2021-11-09 06:02] LABS: BASOPHILS % (AUTO) 0.1 % (0.0-2.0); EOSINOPHILS % (AUTO) 0.1 % (0.0-4.0); HEMATOCRIT 23.4 % (36-52); HEMOGLOBIN 7.2 g/dL (12.0-18.0); LYMPHOCYTES # (AUTO) 0.8 K/uL (2.0-11.5); LYMPHOCYTES % (AUTO) 9.5 % (20.5-51.1); MEAN CORPUSCULAR HEMOGLOBIN 30 pg (27-31); MEAN CORPUSCULAR HGB CONC 31 g/dL (33-37); MEAN CORPUSCULAR VOLUME 97.4 fL (80-94); MONOCYTES # (AUTO) 0.8 K/uL (0.8-1.0); MONOCYTES % (AUTO) 9.4 % (1.7-9.3); NEUTROPHILS # (AUTO) 6.5 K/uL (1.8-7.7); NEUTROPHILS % (AUTO) 80.9 % (42.2-75.2); PLATELET COUNT (AUTO) 300 K/uL (140-450); RED CELL DISTRIBUTION WIDTH 20.6 % (11.6-13.7); WHITE BLOOD COUNT (AUTO) 8.1 K/uL (4.8-10.8)
[2021-11-09] MEDS ORDERED: INSULIN LANTUS 100 UNITS/ML 10 ML VIAL SUBQ SCH (06:15)
--- NOTE | 2021-11-09 08:47 | NUR ---
Dr Garcia at Pt bedside to round with RN. Made aware of previous lab results with possible contamination with fluids and to add a Mg level. New orders noted and carried out.
[2021-11-09] MEDS: FERROUS SULFATE 325 MG TABEC PO SCH ×2 (09:04→17:00)
[2021-11-09] MEDS: TAMSULOSIN 0.4 MG CAP PO SCH (09:39)
[2021-11-09] MEDS: GENTAMICIN 120 MG in DEXTROSE 5% 100 ML IV SCH ×2 (09:44→22:00)
[2021-11-09] MEDS: FUROSEMIDE 20 MG/2 ML VIAL IVP SCH (09:46)
[2021-11-09] MEDS: METOPROLOL 25 MG TAB PO SCH ×2 (09:47→21:00)
[2021-11-09] MEDS: PANTOPRAZOLE 40 MG TABEC PO SCH (09:49)
[2021-11-09] MEDS: FINASTERIDE 5 MG TAB PO SCH (09:50)
--- NOTE | 2021-11-09 09:55 | NUR ---
WOUND CARE RE-EVALUATION NOTE: SKIN ASSESSMENT WITH BUTTOCKS MAD RESPONDING TO CURRENT TX.PT. IS TURN AND REPOSITION OFFLOAD SACRALCOCCYX AND HEELS. WILL CONTINUE CURRENT INTERVENTIONS.
[2021-11-09 10:09] LABS: BASOPHILS % (AUTO) 0.2 % (0.0-2.0)
[2021-11-09 10:16] LABS: ANION GAP 9.6 (8-16); CARBON DIOXIDE 28.2 mmol/L (21-32); CREATININE 1.1 mg/dL (0.6-1.3); POTASSIUM 3.8 mmol/L (3.5-5.1)
[2021-11-09 10:23] LABS: HEMATOCRIT 25.9 % (36-52); LYMPHOCYTES # (AUTO) 0.8 K/uL (2.0-11.5); LYMPHOCYTES % (AUTO) 9.2 % (20.5-51.1); MEAN CORPUSCULAR HEMOGLOBIN 30 pg (27-31); MEAN CORPUSCULAR HGB CONC 31 g/dL (33-37); MEAN CORPUSCULAR VOLUME 95.2 fL (80-94); MONOCYTES # (AUTO) 0.9 K/uL (0.8-1.0); MONOCYTES % (AUTO) 9.9 % (1.7-9.3); NEUTROPHILS # (AUTO) 7.1 K/uL (1.8-7.7); NEUTROPHILS % (AUTO) 80.7 % (42.2-75.2); PLATELET COUNT (AUTO) 325 K/uL (140-450); RED BLOOD CELL COUNT(AUTO) 2.72 MIL/uL (4.20-6.10); RED CELL DISTRIBUTION WIDTH 20.4 % (11.6-13.7); WHITE BLOOD COUNT (AUTO) 8.8 K/uL (4.8-10.8)
[2021-11-09] MEDS: DEXT 5% /NACL 0.9% 1,000 ML IV SCH (12:14)
--- NOTE | 2021-11-09 18:07 | NUR ---
Spoke to Dr Garcia. Was inquiring about CT procedure. CT was consulted, will come for pt as PO contrast is completed.
--- NOTE | 2021-11-09 19:25 | NUR ---
Transfer of care to Ya RN at this time. Made aware of pending radiology procedure with contrast completed
--- NOTE | 2021-11-09 20:15 | NUR ---
called RT at bedside as patient desaturating at 70% on 2L nasal cannula. patient currently having retractions and diminished lung sounds. increased o2 at 4L via NC. patient also currently AAOx1- self but currently cant keep eyes open. made aware.
[2021-11-09] MEDS: ALBUTEROL SULFATE/IPRATROPIU 3 ML SOL IH PRN (20:21)
--- NOTE | 2021-11-09 20:25 | NUR ---
PATIENT SUDDEN CHANGED IN LOC. AAOX0, PATIENT NO RESPONSE TO PAINFUL STIMULI, AND VERBAL STIMULI. PATIENT PUPILS DID NOT DILATE WHEN EYES PLACED IN THE EYES. PATIENT PULSE WEAK, AND THREADY WITH PULSE OF 20, IRREGULAR BREATHING EVEN WITH BREATHING TX BY IMMERSION METAL CLEANER.
--- NOTE | 2021-11-09 20:27 | NUR ---
INITIATED MIKE PERAZA
--- NOTE | 2021-11-09 20:34 | NUR ---
PATIENT INTUBATED AT 20:34 BY MD ASHRAF. TUBE PLACED AT 24 AT THE LIP.
[2021-11-09] MEDS ORDERED: PROPOFOL 1000 MG/100 ML PREMIX 100 ML IV ONE (21:09)
[2021-11-09] MEDS: PROPOFOL 1000 MG/100 ML PREMIX 100 ML IV PRN (21:15)
[2021-11-09] MEDS ORDERED: PROPOFOL 200 MG/20 ML VIAL IV SCH (21:20)
--- NOTE | 2021-11-09 21:21 | NUR ---
PT LAYING IN BED HOB ELEVATED, BS DIMINISHED/ EXP WHZ , TACHYPNEIC, O2 SATURATIONS 97%. ADMINISTERED HHN TX VIA SVN PLUS MASK. WILL CONTINUE TO MONITOR.
--- NOTE | 2021-11-09 21:32 | NUR ---
CODE BLUE CALLED AT BEDSIDE PT WAS INTUBATED FOR AIRWAY PROTECTION @ 2033. PT INTUBATED WITH 7.5mm ETT 25cm @ THE TEETH. SETTINGS PRVC VT450, RR14, FIO2 100%. PT IS SATING 96%. ANTERIOR AUSCULTATION REVEALED BS CLEAR/DIMINISHED, SX LARGE YELLOW THICK SECRETIONS. HOB ELEVATED, ALARMS ON AND AUDIBLE, AMBU BAG AT BEDSIDE, VENT PLUGGED INTO RED OUTLET. WILL CONTINUE TO MONITOR. Addendum: 11/09/21 at 2358 by Mak Hernández RT CORRECTION OF ETT PLACEMENT: ETT @ 22cm @ TEETH
[2021-11-09] MEDS ORDERED: NOREPINEPHRINE 4 MG/4 ML VIAL IV ONE (21:38)
[2021-11-09] MEDS: NACL 0.9% 1,000 ML IV SCH ×2 (22:27→22:36)
[2021-11-09 22:28] LABS: BASOPHILS % (AUTO) 0.4 % (0.0-2.0); HEMATOCRIT 24.1 % (36-52); HEMOGLOBIN 7.4 g/dL (12.0-18.0); LYMPHOCYTES # (AUTO) 0.5 K/uL (2.0-11.5); LYMPHOCYTES % (AUTO) 8.6 % (20.5-51.1); MEAN CORPUSCULAR HEMOGLOBIN 30 pg (27-31); MEAN CORPUSCULAR HGB CONC 31 g/dL (33-37); MEAN CORPUSCULAR VOLUME 96.1 fL (80-94); MONOCYTES # (AUTO) 0.5 K/uL (0.8-1.0); MONOCYTES % (AUTO) 7.5 % (1.7-9.3); NEUTROPHILS # (AUTO) 5.1 K/uL (1.8-7.7); NEUTROPHILS % (AUTO) 83.5 % (42.2-75.2); PLATELET COUNT (AUTO) 248 K/uL (140-450); RED BLOOD CELL COUNT(AUTO) 2.51 MIL/uL (4.20-6.10); WHITE BLOOD COUNT (AUTO) 6.1 K/uL (4.8-10.8)
--- NOTE | 2021-11-09 22:49 | NUR ---
CALLED [facility] TO REPORT FINDINGS TO DR. EDDY TO REPORT POST INTUBATION RESULTS. PH: [phone] PCO2: 69.5 PO2: 392.6 HCO3: 25.5 BE: -3.1 SETTINGS ARE PRVC VT450, RR14, PEEP+5, 100% FIO2. DR. EDDY INSTRUCTED TO INCREASE RR TO 24 AND TITRATE FIO2 TO KEEP O2> 92%. WILL CONTINUE TO MONITOR.
[2021-11-09 23:17] LABS: ALBUMIN 1.3 g/dL (3.4-5.0); ANION GAP 12.9 (8-16); CREATININE 1.4 mg/dL (0.6-1.3); POTASSIUM 3.9 mmol/L (3.5-5.1); TOTAL BILIRUBIN 0.3 mg/dL (0.0-1.0)
[2021-11-09] MEDS: NOREPINEPHRINE 8 MG in DEXTROSE 5% 250 ML IV PRN (23:58)
[2021-11-10] VITALS (26 sets, daily range): BP systolic 86–117; BP diastolic 53–68
[2021-11-10] MEDS: AMPICILLIN/SULBACTAM 3 GM in NACL 0.9% 100 ML IV SCH ×5 (00:03→23:45)
[2021-11-10] MEDS: MENTHOL/ZINC OXIDE 113 GM TUBE TP SCH ×2 (01:00→13:16)
--- NOTE | 2021-11-10 01:28 | NUR ---
PATIENT TO CT VIA GURNEY WITH ICE SELLER AND RN.
--- NOTE | 2021-11-10 02:27 | NUR ---
PER DETECTIVE NARCOTICS AND VICE TIRATED FIO2 TO 50%
--- NOTE | 2021-11-10 02:37 | NUR ---
SPOKE TO CHANI A TRANSFER CENTER FROM [facility] AND ASKED ABOUT UPDATE ON PATIENT AND REQUESTED TO HAVE MD TO MD CONSULTATION AND WAS GIVEN DIRECT NUMBER #[phone] PER CHANI LAST MD THAT ATTEMPTED TO SPEAK TO [facility] WAS MD DYE AND IS AWAITING CALL BACK.
[2021-11-10 06:31] LABS: BASOPHILS % (AUTO) 0.2 % (0.0-2.0); EOSINOPHILS % (AUTO) 0.1 % (0.0-4.0); HEMOGLOBIN 7.3 g/dL (12.0-18.0); LYMPHOCYTES # (AUTO) 0.9 K/uL (2.0-11.5); LYMPHOCYTES % (AUTO) 9.6 % (20.5-51.1); MEAN CORPUSCULAR HEMOGLOBIN 30 pg (27-31); MEAN CORPUSCULAR HGB CONC 32 g/dL (33-37); MEAN CORPUSCULAR VOLUME 94.3 fL (80-94); MONOCYTES # (AUTO) 0.5 K/uL (0.8-1.0); MONOCYTES % (AUTO) 5.8 % (1.7-9.3); NEUTROPHILS # (AUTO) 7.8 K/uL (1.8-7.7); NEUTROPHILS % (AUTO) 84.3 % (42.2-75.2); PLATELET COUNT (AUTO) 258 K/uL (140-450); RED BLOOD CELL COUNT(AUTO) 2.43 MIL/uL (4.20-6.10); RED CELL DISTRIBUTION WIDTH 20.6 % (11.6-13.7); WHITE BLOOD COUNT (AUTO) 9.2 K/uL (4.8-10.8)
[2021-11-10] MEDS: PROPOFOL 1000 MG/100 ML PREMIX 100 ML IV PRN ×3 (06:53→19:19)
[2021-11-10 06:58] LABS: MAGNESIUM 1.4 mg/dL (1.8-2.4); PHOSPHORUS 4.2 mg/dL (2.5-4.9)
[2021-11-10] MEDS: DEXT 5% /NACL 0.9% 1,000 ML IV SCH (07:14)
--- NOTE | 2021-11-10 07:30 | NUR ---
RECEIVED REPORT FROM BILLET CUTTER. PT IN BED WITH HOB ELEVATED. SEDATED RASS -3, OPENS EYES AT TIMES, NO TRACKING. ETT TO VENT: FIO2 40%, TV 450, R 24, PEEP 5. NO RESPIRATORY DISTRESS NOTED. WITH STEPHAN PICC RUNNING PROPOFOL AT 42MCG/KG/MIN, LEVOPHED 8MCG/MIN, D5 NS 50ML/HR. ABDOMEN LARGE AND DISTENDED, HYPOACTIVE. NPO AT THIS TIME. OGT INTACT AND PATENT, CONNECTED TO LOW CONTINUOUS SUCTION. MARTINEZ CATHETER INTACT, DRAINING DARK ASHLEY URINE. SKIN NOT INTACT, REFER TO SKIN ASSESSMENT. SAFETY PRECAUTIONS IN PLACE. WILL CONTINUE TO MONITOR
[2021-11-10 07:59] LABS: ALBUMIN 1.3 g/dL (3.4-5.0); ANION GAP 14.4 (8-16); CARBON DIOXIDE 23.2 mmol/L (21-32); CREATININE 1.3 mg/dL (0.6-1.3); POTASSIUM 3.6 mmol/L (3.5-5.1); TOTAL BILIRUBIN 0.4 mg/dL (0.0-1.0)
[2021-11-10] MEDS ORDERED: MAG SULF 2000 MG/WATER PREMIX 100 ML IV SCH (08:00)
[2021-11-10] MEDS: FERROUS SULFATE 325 MG TABEC PO SCH ×2 (08:00→16:37)
--- NOTE | 2021-11-10 08:40 | NUR ---
SEEN AND EXAMINED BY DR CHAPA, ORDERS NOTED AND CARRIED OUT
[2021-11-10] MEDS: METOPROLOL 25 MG TAB PO SCH (09:00)
--- NOTE | 2021-11-10 09:00 | NUR ---
DUE MEDS GIVEN VIA OGT
[2021-11-10] MEDS: TAMSULOSIN 0.4 MG CAP PO SCH (09:23)
[2021-11-10] MEDS: PANTOPRAZOLE 40 MG INJ VIAL IVP SCH (09:23)
[2021-11-10] MEDS: FINASTERIDE 5 MG TAB PO SCH (09:24)
--- NOTE | 2021-11-10 09:30 | NUR ---
ORAL CARE AND MARTINEZ CARE DONE. TURNED AND REPOSITIONED
--- NOTE | 2021-11-10 11:20 | NUR ---
SEDIMENTS NOTED ON MARTINEZ, MARTINEZ CATHETER FLUSHED ORDERED BY DR FUENTES
--- NOTE | 2021-11-10 13:30 | NUR ---
SEEN AND EXAMINED BY DR DODSON, NO NEW ORDERS
[2021-11-10] MEDS: ALBUTEROL SULFATE/IPRATROPIU 3 ML SOL IH PRN (13:47)
--- NOTE | 2021-11-10 15:08 | NUR ---
11/10/21 RD FOLLOW UP COMPLETED PLEASE REFER TO NUTRITION ASSESSMENT UNDER CARE ACTIVITY FOR ESTIMATED NUTRITIONAL NEEDS. 1. CONTINUE NPO PER MD 2. WHEN/IF MEDICALLY APPROPRIATE TO INITIATE TUBE FEEDING, RECOMMEND VITAL AF 1.2 WITH A GOAL RATE OF 50 ML/HR, FWF 150 ML Q6H OR PER MD -START AT 10 ML/HR AND INCREASE BY 10 ML Q4H TOLERATED -WILL PROVIDE 1440 KCAL AND 90 GM PROTEIN, MEETING 85% OF ESTIMATED KCAL AND 100% OF ESTIMATED PROTEIN NEEDS 3. IF EXTUBATED, RECOMMEND CONTINUING REGULAR DIET TOLERATED -RECOMMEND CLEAR LIQUID DIET BEFORE ADVANCING TO REGULAR 4. RD TO FOLLOW-UP 2-3 DAYS, HIGH RISK GEOVANNA BUTT RD
[2021-11-10] MEDS: GENTAMICIN 80 MG in DEXTROSE 5% 98 ML IV SCH (16:37)
--- NOTE | 2021-11-10 17:00 | NUR ---
EZE CARE, WOUND CARE, AND ORAL CARE DONE. TURNED AND REPOSITIONED
--- NOTE | 2021-11-10 19:25 | NUR ---
Received report on pt. Pt intubated on ventilator FiO2 40%, sedated with diprivan, on levophed drip and IV fluids. Pt in no acute signs of pain or distress. OGT in place to low continuous suction, noted light green output. Abdomen round, distended, tender to touch. Wade in place draining urine to gravity. IV site intact, patent, no infiltration noted. BLE and BUE with pitting edema.
[2021-11-10] MEDS: NOREPINEPHRINE 8 MG in DEXTROSE 5% 250 ML IV PRN (20:12)
[2021-11-11] VITALS (27 sets, daily range): BP systolic 91–123; BP diastolic 59–74
[2021-11-11] MEDS: DEXT 5% /NACL 0.9% 1,000 ML IV SCH ×2 (00:15→03:30)
[2021-11-11] MEDS: MENTHOL/ZINC OXIDE 113 GM TUBE TP SCH ×2 (00:20→13:00)
[2021-11-11] MEDS: PROPOFOL 1000 MG/100 ML PREMIX 100 ML IV PRN ×3 (01:53→22:53)
[2021-11-11] MEDS: GENTAMICIN 80 MG in DEXTROSE 5% 98 ML IV SCH ×2 (04:27→17:31)
[2021-11-11] MEDS: AMPICILLIN/SULBACTAM 3 GM in NACL 0.9% 100 ML IV SCH ×3 (05:35→18:00)
[2021-11-11 05:51] LABS: BASOPHILS % (AUTO) 0.2 % (0.0-2.0); EOSINOPHILS # (AUTO) 0.1 K/uL (0-0.4); EOSINOPHILS % (AUTO) 1.6 % (0.0-4.0); LYMPHOCYTES # (AUTO) 0.9 K/uL (2.0-11.5); LYMPHOCYTES % (AUTO) 12.7 % (20.5-51.1); MAGNESIUM 1.8 mg/dL (1.8-2.4); MEAN CORPUSCULAR HEMOGLOBIN 31 pg (27-31); MEAN CORPUSCULAR HGB CONC 34 g/dL (33-37); MEAN CORPUSCULAR VOLUME 91.2 fL (80-94); MONOCYTES # (AUTO) 0.4 K/uL (0.8-1.0); NEUTROPHILS # (AUTO) 5.6 K/uL (1.8-7.7); NEUTROPHILS % (AUTO) 79.5 % (42.2-75.2); PHOSPHORUS 2.8 mg/dL (2.5-4.9); PLATELET COUNT (AUTO) 211 K/uL (140-450); RED CELL DISTRIBUTION WIDTH 20.7 % (11.6-13.7)
[2021-11-11 06:03] LABS: ANION GAP 11.3 (8-16); POTASSIUM 3.3 mmol/L (3.5-5.1); TOTAL BILIRUBIN 0.5 mg/dL (0.0-1.0)
[2021-11-11 06:05] LABS: HEMOGLOBIN 6.8 g/dL (12.0-18.0)
--- NOTE | 2021-11-11 06:34 | NUR ---
Pt in no signs of pain or distress. Remains intubated on vent, sedated with diprivan. Levophed drip and IVF infusing. No BM noted, flatulence present. No other acute changes noted during shift. Pt noted with K 3.3, administered PRN med per MD order. Suction on hold for med administration. Addendum: 11/11/21 at 0639 by Agency Nurse 25, RN RN No signs of active bleeding noted. Noted light green OGT output from suction.
--- NOTE | 2021-11-11 07:00 | NUR ---
Received report from Barbara VALDEZ and assumed care of patient. Patient resting comfortably, NSR on the monitor, Levophed infusing to the PICC line at the R upper arm at 4 mcg/kg/min, D5NS @ 50 ml per/hr, Propofol at 30 mcg/kg/min. There is a 22 G to the L wrist area that is infusing NS at 5 TKO. IV and PICC line clean and intact. Patient on the ventilator AC 18, TV 450, FiO2 40 and Peep of 5. Will monitor, follow plan of care and report any abnormalities.
[2021-11-11] MEDS: FERROUS SULFATE 325 MG TABEC PO SCH ×2 (08:10→17:31)
[2021-11-11] MEDS: TAMSULOSIN 0.4 MG CAP PO SCH (08:11)
--- NOTE | 2021-11-11 08:30 | NUR ---
Dr. Garcia at bedside. Per Dr. Garcia, she will place orders for PT/INR, PTT, and IR paracentesis.
[2021-11-11 08:39] LABS: ALBUMIN 1.3 g/dL (3.4-5.0)
[2021-11-11] MEDS: FINASTERIDE 5 MG TAB PO SCH (09:37)
[2021-11-11] MEDS: PANTOPRAZOLE 40 MG INJ VIAL IVP SCH (09:37)
--- NOTE | 2021-11-11 10:51 | NUR ---
Order placed for Pt/INR, and PTT per Dr. Garcia. I called laboratory to advise them of the new order. Per aquatic life laborer they will send someone over right now.
--- NOTE | 2021-11-11 13:30 | NUR ---
Patient more alert when moved from side to side. He is able to nod his head. Patient back to sleep after settling him in bed. No grimace on face, body relaxed. No signs of acute distress noted, will continue to monitor.
--- NOTE | 2021-11-11 16:34 | NUR ---
sap technical architect arrived for blood samples. sap technical architect attempted to collect and was unsuccessful. Blood was collected via PICC line.
[2021-11-11 16:57] LABS: PROTHROMBIN TIME 12.2 secs (10.8-13.4)
--- NOTE | 2021-11-11 17:15 | NUR ---
Dr. Iverson at bedside.
--- NOTE | 2021-11-11 19:15 | NUR ---
Report endorsed to Supriya RN to transfer care of patient and end my care and shift. Patient NSR on the monitor, 100% O2 sat on the ventilator, no signs of acute distress noted, VSS with Levophed.
--- NOTE | 2021-11-11 19:20 | NUR ---
RECEIVED PATIENT ON BED, ORALLY INTUBATED AND VENTILATED AT 40% FIO2; SEDATED RASS -3 WITH CONTINOUS PROPOFOL DRIP AT 30 MCG/KG/MIN VIA PICC LINE TO RIGHT UPPER ARM, ALSO WITH IVF IN PROGRESS D5 NS AT 50 ML/HR AND ON LEVOPHED DRIP AT 4 MCG/MIN. ABDOMEN IS SOFT BUT DISTENDED; HYPOACTIVE BOWEL SOUNDS. WITH OGT IN PLACE; NPO.
--- NOTE | 2021-11-11 20:30 | NUR ---
TURNED AND REPOSITIONED PATIENT; ORAL CARE DONE WITH VAP KIT
--- NOTE | 2021-11-11 22:30 | NUR ---
HAD BM TO A SOFT BROWN STOOL; EVENING CARE DONE; LINEN CHANGED.
--- NOTE | 2021-11-11 23:37 | NUR ---
FIO2 TITRATED TO 28% AND TOLERATING WELL AT THIS TIME
[2021-11-12] VITALS (28 sets, daily range): BP systolic 88–130; BP diastolic 56–83
[2021-11-12] MEDS ORDERED: AMPICILLIN/SULBACTAM 3 GM VIAL ONE (00:45)
[2021-11-12] MEDS: AMPICILLIN/SULBACTAM 3 GM in NACL 0.9% 100 ML IV SCH ×5 (00:55→23:31)
[2021-11-12] MEDS: MENTHOL/ZINC OXIDE 113 GM TUBE TP SCH ×2 (01:00→13:00)
--- NOTE | 2021-11-12 02:00 | NUR ---
LEVOPED DRIP TITRATED DOWN TO 3 MCG/MIN.
--- NOTE | 2021-11-12 02:33 | NUR ---
FIO2 TITRATED TO 24% AND TOLERATING WELL SPO2 100% 10 MIN POST TITRATION WILL CONTINUE TO MONITOR
[2021-11-12] MEDS: GENTAMICIN 80 MG in DEXTROSE 5% 98 ML IV SCH (05:25)
--- NOTE | 2021-11-12 06:45 | NUR ---
[facility]SF[facility] CALLED AND SHE TOLD ME THAT THEIR DOCTOR HAD TALKED TO DR. CHAPA THAT THIS PATIENT WILL NO LONGER BE TAKEN FOR HIGHER LEVEL OF CARE, INSTEAD PATIENT CAN DO AN OUTPATIENT CONSULTATION TO [facility]OLOG[facility] OF DR. DORITA CHACKO TEL NO. [phone] IF PATIENT WILL BE DISCHARGE FROM HERE.
[2021-11-12 07:10] LABS: MAGNESIUM 1.6 mg/dL (1.8-2.4); PHOSPHORUS 2.5 mg/dL (2.5-4.9)
--- NOTE | 2021-11-12 07:15 | NUR ---
REPORT RECEIVED FROM JOSÉ MIGUEL FREEMAN.
--- NOTE | 2021-11-12 08:15 | NUR ---
PATIENT SEDATED. PUPILS 3MM AND REACTIVE. STEPHAN PICC LINE IN PLACE WITH D5NS AT 50ML/HR, LEVOPHED AT 2MCG/MIN, PROPOFOL AT 30MCG/KG/MIN. HEART SOUNDS REGULAR WITHOUT MURMUR. MONITOR SR. INTUBATED WITH VENT AT AC/PRVC MODE FIO2.024/VT450/RATE18/PEEP5. SAO2 100%. ANTERIOR/LATERAL BREATH SOUNDS DIMINISHED THROUGHOUT. ABDOMEN DISTENDED AND FIRM. HYPOACTIVE BOWEL SOUNDS. ORAL GASTRIC TUBE IN PLACE TO LOW CONTINUOUS SUCTION. DRAINAGE YELLOW/GREEN IN COLOR. MARTINEZ IN PLACE WITH YELLOW URINE. #22 GAUGE LEFT FOREARM REMOVED.
[2021-11-12] MEDS: TAMSULOSIN 0.4 MG CAP PO SCH (09:00)
[2021-11-12] MEDS: FERROUS SULFATE 325 MG TABEC PO SCH ×2 (09:00→17:25)
--- NOTE | 2021-11-12 09:30 | NUR ---
(11/12/21) RD FOLLOW UP COMPLETED PLEASE REFER TO NUTRITION PROGRESS NOTE UNDER CARE ACTIVITY FOR ESTIMATED NUTRITION NEEDS. RD RECOMMENDATIONS: 1. CONTINUE NPO PER MD 2. WHEN/IF MEDICALLY APPROPRIATE TO INITIATE TUBE FEEDING, RECOMMEND VITAL AF 1.2 WITH A GOAL RATE OF 50 ML/HR, FWF 150 ML Q6H OR PER MD -START AT 10 ML/HR AND INCREASE BY 10 ML Q4H TOLERATED -WILL PROVIDE 1440 KCAL AND 90 GM PROTEIN, MEETING 85% OF ESTIMATED KCAL AND 100% OF ESTIMATED PROTEIN NEEDS 3. IF EXTUBATED, RECOMMEND CONTINUING REGULAR DIET TOLERATED -RECOMMEND CLEAR LIQUID DIET BEFORE ADVANCING TO REGULAR 4. RD TO FOLLOW-UP 2-3 DAYS, HIGH RISK ALEXX KOHLER, MS, RDN
[2021-11-12] MEDS: FINASTERIDE 5 MG TAB PO SCH (09:36)
[2021-11-12] MEDS: PANTOPRAZOLE 40 MG INJ VIAL IVP SCH (09:36)
--- NOTE | 2021-11-12 10:15 | NUR ---
DR. GALLEGO HERE. PROPOFOL TURNED OFF FOR SEDATION VACATION. RT NOTIFIED FOR CPAP TRIAL.
[2021-11-12] MEDS ORDERED: MAG SULF 2000 MG/WATER PREMIX 50 ML IV SCH (11:00)
--- NOTE | 2021-11-12 11:00 | NUR ---
PATIENT SEDATION OFF. PATIENT PULLED OUT ORAL GASTRIC TUBE. REPLACED TO RIGHT NARE WITHOUT DIFFICULTY. PLACEMENT VERIFIED WITH XRAY. NGT PLACED TO LCS.
--- NOTE | 2021-11-12 11:30 | NUR ---
BP 109/69(82) LEVOPHED TURNED OFF.
--- NOTE | 2021-11-12 12:00 | NUR ---
CPAP TRIAL COMPLETE. SAO2 100%. NIF -12 PER RT. PLACED BACK TO AC/PRVC MODE. PROPOFOL RESTARTED AT 30MCG/KG/MIN.
[2021-11-12 12:15] LABS: ANION GAP 10.9 (8-16); CARBON DIOXIDE 25.7 mmol/L (21-32); CREATININE 0.8 mg/dL (0.6-1.3); POTASSIUM 3.6 mmol/L (3.5-5.1)
--- NOTE | 2021-11-12 13:30 | NUR ---
BP 88/60. PROPOFOL DECREASED TO 20MCG/KG/MIN. PATIENT SEDATE. OPENS EYES WITH TACTILE STIMULI.
[2021-11-12 14:21] LABS: BASOPHILS % (AUTO) 0.2 % (0.0-2.0); EOSINOPHILS # (AUTO) 0.2 K/uL (0-0.4); EOSINOPHILS % (AUTO) 2.1 % (0.0-4.0); HEMATOCRIT 25.6 % (36-52); HEMOGLOBIN 8.2 g/dL (12.0-18.0); LYMPHOCYTES # (AUTO) 1.3 K/uL (2.0-11.5); LYMPHOCYTES % (AUTO) 14.1 % (20.5-51.1); MEAN CORPUSCULAR HEMOGLOBIN 29 pg (27-31); MEAN CORPUSCULAR HGB CONC 32 g/dL (33-37); MEAN CORPUSCULAR VOLUME 91.6 fL (80-94); MONOCYTES # (AUTO) 0.4 K/uL (0.8-1.0); MONOCYTES % (AUTO) 4.8 % (1.7-9.3); NEUTROPHILS # (AUTO) 7.2 K/uL (1.8-7.7); NEUTROPHILS % (AUTO) 78.8 % (42.2-75.2); PLATELET COUNT (AUTO) 239 K/uL (140-450); RED BLOOD CELL COUNT(AUTO) 2.79 MIL/uL (4.20-6.10); RED CELL DISTRIBUTION WIDTH 20.2 % (11.6-13.7); WHITE BLOOD COUNT (AUTO) 9.1 K/uL (4.8-10.8)
[2021-11-12] MEDS ORDERED: SODIUM FERRIC GLUCONATE 125 MG in NACL 0.9% 100 ML IV SCH (15:00)
[2021-11-12] MEDS: DEXT 5% /NACL 0.9% 1,000 ML IV SCH (18:48)
--- NOTE | 2021-11-12 19:23 | NUR ---
REPORT GIVEN TO JOSÉ MIGUEL ESCOBEDO.
--- NOTE | 2021-11-12 20:15 | NUR ---
REPORT RECEIVED FROM RAMONE VALDEZ NOVEMBER FOR CONTINUITY OF CARE. PT LAYING IN BED RASS -1; WAKES TO VOICE/TOUCH. LUNG SOUNDS DIMINISHED THROUGHOUT. ETT TO VENT A/C PRVC FIO2 @24%, TV @450, RATE @18, AND PEEP @5. NGT TO R NARES ALREADY IN PLACE AND CONNECTED TO CONTINUOUS SUCTION. ABDOMEN IS DISTENDED AND FIRM. STEPHAN PICC ALREADY IN PLACE, PATENT AND INTACT, INFUSING PROPOFOL @20 MCG/KG/HR AND D5NS @50ML/HR. F/C ALREADY IN PLACE DRAINING TO GRAVITY. SAFETY MEASURES IN PLACE. INITIAL ASSESSMENT COMPLETED. BED IN LOWEST POSITION AND CALL LIGHT IN REACH. WILL CONTINUE TO MONITOR.
--- NOTE | 2021-11-12 23:13 | NUR ---
PT OBSERVED. CHEST RISE AND FALL PRESENT. RASS -2. TURNED, REPOSITIONED, AND ORAL CARE PROVIDED. WILL CONTINUE TO MONITOR.
[2021-11-13] VITALS (28 sets, daily range): BP systolic 87–119; BP diastolic 55–78
[2021-11-13] MEDS: MENTHOL/ZINC OXIDE 113 GM TUBE TP SCH ×2 (01:10→14:00)
--- NOTE | 2021-11-13 02:06 | NUR ---
PT OBSERVED. RESTING IN BED WITH EYES CLOSED. NO S/S OF RESP DISTRESS NOTED. VSS. PT TURNED AND REPOSITIONED. ORAL CARE PROVIDED. TOLERATED WELL. WILL CONTINUE TO MONITOR.
[2021-11-13] MEDS: PROPOFOL 1000 MG/100 ML PREMIX 100 ML IV PRN ×2 (04:29→23:01)
--- NOTE | 2021-11-13 04:31 | NUR ---
AM CARE, EZE CARE, ORAL CARE PROVIDED. TOLERATED WELL. WILL CONTINUE TO MONITOR.
[2021-11-13] MEDS: AMPICILLIN/SULBACTAM 3 GM in NACL 0.9% 100 ML IV SCH ×4 (05:50→23:32)
[2021-11-13 06:02] LABS: BASOPHILS % (AUTO) 0.2 % (0.0-2.0); EOSINOPHILS # (AUTO) 0.2 K/uL (0-0.4); EOSINOPHILS % (AUTO) 2.6 % (0.0-4.0); HEMATOCRIT 21.7 % (36-52); HEMOGLOBIN 7.2 g/dL (12.0-18.0); LYMPHOCYTES # (AUTO) 1.1 K/uL (2.0-11.5); LYMPHOCYTES % (AUTO) 13.6 % (20.5-51.1); MEAN CORPUSCULAR HEMOGLOBIN 30 pg (27-31); MEAN CORPUSCULAR HGB CONC 33 g/dL (33-37); MEAN CORPUSCULAR VOLUME 89.9 fL (80-94); MONOCYTES # (AUTO) 0.6 K/uL (0.8-1.0); MONOCYTES % (AUTO) 6.9 % (1.7-9.3); NEUTROPHILS # (AUTO) 6.3 K/uL (1.8-7.7); NEUTROPHILS % (AUTO) 76.7 % (42.2-75.2); PLATELET COUNT (AUTO) 257 K/uL (140-450); RED BLOOD CELL COUNT(AUTO) 2.41 MIL/uL (4.20-6.10); RED CELL DISTRIBUTION WIDTH 20.3 % (11.6-13.7); WHITE BLOOD COUNT (AUTO) 8.1 K/uL (4.8-10.8)
[2021-11-13 06:09] LABS: ANION GAP 9.5 (8-16); CARBON DIOXIDE 26.8 mmol/L (21-32); CREATININE 0.7 mg/dL (0.6-1.3); POTASSIUM 3.3 mmol/L (3.5-5.1)
[2021-11-13 06:12] LABS: PHOSPHORUS 2.7 mg/dL (2.5-4.9)
[2021-11-13] MEDS: MORPHINE SULFATE 2 MG/ML SYR IVP PRN (06:30)
--- NOTE | 2021-11-13 07:14 | NUR ---
REPORT GIVEN AT BEDSIDE TO DAYSHIFT RN FOR CONTINUITY OF CARE.
--- NOTE | 2021-11-13 07:15 | NUR ---
REPORT RECEIVED FROM PERSONAL SUPPORT WORKER RNFANNY.
--- NOTE | 2021-11-13 08:00 | NUR ---
PATIENT SEDATED BUT AROUSES TO TACTILE STIMULI. NODS TO QUESTIONS. HEART SOUNDS REGULAR. MONITOR SHOWS SR. STEPHAN PICC LINE IN PLACE WITH D5NS AT 50ML/HR AND PROPOFOL AT 20MCG/KG/MIN. ETT TO VENT AC/PRVC FIO2 .24/VT450/RATE 18/PEEP 5. SAO2 100%. ANTERIOR/LATERAL BREATH SOUNDS DIMINISHED BILATERALLY. MINIMAL SECRETIONS WITH SUCTIONING. ABDOMEN DISTENDED AND TAUT. HYPOACTIVE BS. RIGHT NARE NG TUBE IN PLACE TO LOW CONTINUOUS SUCTION. MARTINEZ IN PLACE WITH YELLOW URINE.
[2021-11-13] MEDS: FERROUS SULFATE 325 MG TABEC PO SCH ×2 (08:09→16:42)
[2021-11-13] MEDS: TAMSULOSIN 0.4 MG CAP PO SCH (08:09)
[2021-11-13] MEDS: FINASTERIDE 5 MG TAB PO SCH (08:10)
[2021-11-13] MEDS: PANTOPRAZOLE 40 MG INJ VIAL IVP SCH (08:10)
--- NOTE | 2021-11-13 08:30 | NUR ---
DR. DALE HERE TO SEE PATIENT. UPDATED ON PATIENTS CONDITION THROUGH PAINTINGS RESTORER. DISCUSSED PARECENTESIS TIMING TODAY. DR. DALE TO CALL RADIOLOGY TO DISCUSS.
[2021-11-13] MEDS ORDERED: DEXTROSE 5% IV SCH (09:00)
[2021-11-13] MEDS ORDERED: GENTAMICIN IV SCH (09:00)
[2021-11-13] MEDS ORDERED: KCL 20 MEQ/WATER INJ PREMIX 100 ML IV ONE (10:14)
--- NOTE | 2021-11-13 10:15 | NUR ---
K 3.3 POTASSIUM REPLACEMENT STARTED 20MEQ IV. PATIENT NODDED YES TO PAIN BUT UNABLE TO LOCALIZE. NORCO 1 TAB GIVEN PER NGT FOR PAIN.
[2021-11-13] MEDS: KCL 20 MEQ/WATER INJ PREMIX 100 ML IV PRN (10:30)
[2021-11-13] MEDS: HYDROcodone/APAP 5/325 MG 1 TAB TAB PO PRN (10:44)
--- NOTE | 2021-11-13 11:00 | NUR ---
RT CHANGED MODE TO SIMV WITH PS 10.
--- NOTE | 2021-11-13 12:45 | NUR ---
PROPOFOL OFF AND PATIENT PLACED ON CPAP TRIAL. SO2 100%.
[2021-11-13] MEDS ORDERED: CALCIUM GLUC 1 GM/50 mL NS BAG 50 ML IV SCH (13:00)
--- NOTE | 2021-11-13 13:24 | NUR ---
11/13/21 RD FOLLOW UP COMPLETED. PLEASE REFER TO NUTRITION ASSESSMENT UNDER CARE ACTIVITY FOR ESTIMATED NUTRITIONAL NEEDS. 1. CONTINUE NPO PER MD 2. WHEN/IF MEDICALLY APPROPRIATE TO INITIATE TUBE FEEDING, RECOMMEND VITAL AF 1.2 WITH A GOAL RATE OF 50 ML/HR, FWF 150 ML Q6H OR PER MD -START AT 10 ML/HR AND INCREASE BY 10 ML Q4H TOLERATED -WILL PROVIDE 1440 KCAL AND 90 GM PROTEIN, MEETING 85% OF ESTIMATED KCAL AND 100% OF ESTIMATED PROTEIN NEEDS 3. IF EXTUBATED, RECOMMEND CONTINUING REGULAR DIET TOLERATED -RECOMMEND CLEAR LIQUID DIET BEFORE ADVANCING TO REGULAR 4. RD TO FOLLOW-UP 2-3 DAYS, HIGH RISK RD TO FOLLOW-UP IN 2-3 DAYS PATIENT IS HIGH RISK. [place], RD
--- NOTE | 2021-11-13 14:00 | NUR ---
PATIENT TOLERATED CPAP WELL. PLACED BACK ON AC/PRVC. PH 7.44, PCO2 37.0, PO2 88, HCO3 25.0. PROPOFOL TURNED BACK ON AT 20MCG/KG/MIN.
[2021-11-13] MEDS: DEXT 5% /NACL 0.9% 1,000 ML IV SCH (18:00)
--- NOTE | 2021-11-13 19:11 | NUR ---
REPORT GIVEN TO TETRYL NITRATOR OPERATOR RNFANNY. PATIENT STABLE.
--- NOTE | 2021-11-13 21:58 | NUR ---
PT OBSERVED. CHEST RISE AND FALL PRESENT. NO S/S OF DISTRESS NOTED. ORAL SUCTION AND CARE PROVIDED. TURNED AND REPOSITIONED. WILL CONTINUE TO MONITOR.
[2021-11-14] VITALS (26 sets, daily range): BP systolic 84–127; BP diastolic 51–79
[2021-11-14] MEDS: MENTHOL/ZINC OXIDE 113 GM TUBE TP SCH ×2 (01:00→12:39)
--- NOTE | 2021-11-14 01:52 | NUR ---
PT OBSERVED LAYING IN BED WITH EYES CLOSED. RASS -1, RESPONDS TO VOICE AND TACTILE STIMULI. ABLE TO LET NEEDS KNOWN. NO S/S OF DISTRESS NOTED. VSS. WILL CONTINUE TO MONITOR.
--- NOTE | 2021-11-14 04:26 | NUR ---
PT WITH SCANT AMOUNT OF STOOL PRESENT. AM CARE, EZE CARE, ORAL CARE PROVIDED. DRESSINGS CHANGED. TOLERATED WELL. NO S/S OF DISTRESS NOTED. PT TURNED AND REPOSITIONED. WILL CONTINUE TO MONITOR.
[2021-11-14 05:53] LABS: ANION GAP 10.4 (8-16); CREATININE 0.7 mg/dL (0.6-1.3); MAGNESIUM 1.6 mg/dL (1.8-2.4); PHOSPHORUS 3.1 mg/dL (2.5-4.9); POTASSIUM 3.4 mmol/L (3.5-5.1)
[2021-11-14] MEDS: AMPICILLIN/SULBACTAM 3 GM in NACL 0.9% 100 ML IV SCH ×3 (05:56→17:24)
[2021-11-14 07:29] LABS: BASOPHILS # (AUTO) 0.1 K/uL (0.00-0.22); BASOPHILS % (AUTO) 1.1 % (0.0-2.0); EOSINOPHILS # (AUTO) 0.2 K/uL (0-0.4); EOSINOPHILS % (AUTO) 2.1 % (0.0-4.0); HEMATOCRIT 22.1 % (36-52); HEMOGLOBIN 7.1 g/dL (12.0-18.0); LYMPHOCYTES # (AUTO) 1.3 K/uL (2.0-11.5); LYMPHOCYTES % (AUTO) 13.5 % (20.5-51.1); MEAN CORPUSCULAR HEMOGLOBIN 29 pg (27-31); MEAN CORPUSCULAR HGB CONC 32 g/dL (33-37); MEAN CORPUSCULAR VOLUME 90.9 fL (80-94); MONOCYTES # (AUTO) 0.8 K/uL (0.8-1.0); MONOCYTES % (AUTO) 8.2 % (1.7-9.3); NEUTROPHILS # (AUTO) 7.1 K/uL (1.8-7.7); NEUTROPHILS % (AUTO) 75.1 % (42.2-75.2); PLATELET COUNT (AUTO) 295 K/uL (140-450); RED BLOOD CELL COUNT(AUTO) 2.43 MIL/uL (4.20-6.10); RED CELL DISTRIBUTION WIDTH 20.5 % (11.6-13.7); WHITE BLOOD COUNT (AUTO) 9.5 K/uL (4.8-10.8)
--- NOTE | 2021-11-14 07:30 | NUR ---
Received report on pt. Pt intubated and sedated, on diprivan drip. Pt is scheduled for paracentesis today, consent signed in chart. Pt in no acute signs of pain or distress. NGT to suction. Wade in place draining urine to gravity.
[2021-11-14] MEDS: TAMSULOSIN 0.4 MG CAP PO SCH (07:48)
[2021-11-14 07:52] LABS: PROTHROMBIN TIME 12.1 secs (10.8-13.4)
[2021-11-14] MEDS: FERROUS SULFATE 325 MG TABEC PO SCH ×2 (08:01→16:24)
[2021-11-14] MEDS: PANTOPRAZOLE 40 MG INJ VIAL IVP SCH (08:02)
[2021-11-14] MEDS: FINASTERIDE 5 MG TAB PO SCH (08:04)
[2021-11-14] MEDS: PROPOFOL 1000 MG/100 ML PREMIX 100 ML IV PRN ×2 (09:00→14:16)
--- NOTE | 2021-11-14 10:06 | NUR ---
Paracentesis being done at bedside Addendum: 11/14/21 at 1019 by Agency Nurse 25, RN RN By Dr. Pedro Lantigua
[2021-11-14] MEDS: NOREPINEPHRINE 8 MG in DEXTROSE 5% 250 ML IV PRN (10:30)
--- NOTE | 2021-11-14 10:32 | NUR ---
Paracentesis done. About 4800 ml yellow output from abdomen, sent to lab per MD order. Pt also started on levophed for BP support. Dr. Zafar rounding new orders made.
[2021-11-14] MEDS: MIDODRINE 5 MG TAB NG SCH ×2 (12:42→19:35)
[2021-11-14] MEDS: KCL 20 MEQ/WATER INJ PREMIX 100 ML IV PRN (13:07)
--- NOTE | 2021-11-14 16:12 | NUR ---
Pt extubated and placed on nasal cannula 4L O2 by RT per Dr. Johns's orders. Pt able to follow commands and communicated needs. Tolerating well. O2 saturation 100% with no distress. Pt able to cough. Some suctioning needed.
--- NOTE | 2021-11-14 16:15 | NUR ---
PT EXTUBATED PER DR GALLEGO, PT PLACED ON NASAL CANNULA - NO DISTRESS NOTED - PT STATED AFTER EXTUBATION , "THAT HURT" AUDIBLY -
--- NOTE | 2021-11-14 17:40 | NUR ---
RN REQUESTED NT SUCTION FOR PT AFTER EXTUBATION - PT WAS ABLE TO USE I.S. WITH ASSISTANCE
[2021-11-14] MEDS: ALBUTEROL SULFATE/IPRATROPIU 3 ML SOL IH SCH ×2 (19:00→23:00)
--- NOTE | 2021-11-14 19:15 | NUR ---
RECEIVED PATIENT ON BED, AWAKE, ALERT ABLE TO FOLLOW COMMANDS; BUT STILL SOMEWHAT WEAK TO MOVE HIS LIMBS. BREATHING EVEN AND UNLABORED AT 4 LITERS 02/NC. SO2 100%. CARDIACSCOPE SHOWS ON SINUS TACHY HR 103/MIN NO ARRHYTHMIAS SEEN. PICC LINE IN SITU TO RIGHT UPPER ARM, PATENT AND INTACT. ABDOMEN IS SOFT , STILL SOMEWHAT DISTENDED; NGT IN PLACE AND ON CONTINOUS TUBE FEEDING VITAL AF AT 30 ML/HR; TOLERATED AND WITH MINIMAL RESIDUALS SEEN.
--- NOTE | 2021-11-14 20:00 | NUR ---
HAD BM TO A LARGE AMOUNT OF SOFT LOOSE GRAYISH COLOR STOOL; KEPT CLEAN , DRY AND COMFORTABLE.
[2021-11-14] MEDS: HYDROcodone/APAP 5/325 MG 1 TAB TAB PO PRN (21:04)
[2021-11-14 21:10] LABS: APPEARANCE,SPUN,BODY FLUID CLEAR (CLEAR); APPEARANCE,UNSPUN,BODY FLUID CLEAR (CLEAR); COLOR,BODY FLUID YELLOW (LT YELLOW); SPECIMENTYPE,BODY FLUID PARACENTESIS; TOTAL VOLUME,BODY FLUID 4800 mL
[2021-11-14 21:39] LABS: GLUCOSE,BODY FLUID 78 mg/dL
[2021-11-14 22:15] LABS: RBC, BODY FLUID 1872 /cu. mm.; WBC, BODY FLUID 8928 /cu. mm.
[2021-11-14 22:22] LABS: POLYNUCLEAR, BODY FLUID 74 %
[2021-11-15] VITALS (14 sets, daily range): BP systolic 103–140; BP diastolic 56–80
--- NOTE | 2021-11-15 | NUR ---
CALM AND QUIET; SLEEPING COMFORTABLY; V/S WITHIN NORMAL RANGE.
[2021-11-15] MEDS: AMPICILLIN/SULBACTAM 3 GM in NACL 0.9% 100 ML IV SCH ×5 (00:43→23:34)
[2021-11-15] MEDS: MENTHOL/ZINC OXIDE 113 GM TUBE TP SCH ×2 (01:16→13:00)
--- NOTE | 2021-11-15 02:45 | NUR ---
RECEIVED A CALL FROM [facility] FOLLOWING UP PATIENT'S STATUS,SHE SAID THEY ARE STILL WAITING FOR OUR AIRCRAFT LOAD CONTROLLER TO SEND PATIENT'S IMAGES.
--- NOTE | 2021-11-15 03:30 | NUR ---
PATIENT PULLED OUT HIS NGT.; FOR SWALLOW EVAL TODAY.
[2021-11-15] MEDS: ALBUTEROL SULFATE/IPRATROPIU 3 ML SOL IH SCH ×6 (04:17→23:05)
[2021-11-15 06:09] LABS: CARBON DIOXIDE 28.4 mmol/L (21-32); CREATININE 0.7 mg/dL (0.6-1.3); POTASSIUM 3.4 mmol/L (3.5-5.1)
--- NOTE | 2021-11-15 06:35 | NUR ---
SLEEPING; V/S WITHIN NORMAL RANGE; BREATHING SPONTANEOUSLY ON ROOM AIR.
[2021-11-15] MEDS: MIDODRINE 5 MG TAB NG SCH ×3 (06:48→18:12)
--- NOTE | 2021-11-15 06:48 | NUR ---
DUE MIDODRINE DOSE NOT GIVEN: NGT IS OUT; AWAITING SWALLOW EVAL.
[2021-11-15 06:56] LABS: BASOPHILS # (AUTO) 0.2 K/uL (0.00-0.22); BASOPHILS % (AUTO) 1.2 % (0.0-2.0); EOSINOPHILS # (AUTO) 0.1 K/uL (0-0.4); EOSINOPHILS % (AUTO) 0.7 % (0.0-4.0); HEMATOCRIT 24.3 % (36-52); HEMOGLOBIN 7.8 g/dL (12.0-18.0); LYMPHOCYTES # (AUTO) 1.3 K/uL (2.0-11.5); LYMPHOCYTES % (AUTO) 8.4 % (20.5-51.1); MEAN CORPUSCULAR HEMOGLOBIN 29 pg (27-31); MEAN CORPUSCULAR HGB CONC 32 g/dL (33-37); MEAN CORPUSCULAR VOLUME 90.9 fL (80-94); MONOCYTES # (AUTO) 1.3 K/uL (0.8-1.0); MONOCYTES % (AUTO) 8.9 % (1.7-9.3); NEUTROPHILS # (AUTO) 12.2 K/uL (1.8-7.7); NEUTROPHILS % (AUTO) 80.8 % (42.2-75.2); PLATELET COUNT (AUTO) 323 K/uL (140-450); RED BLOOD CELL COUNT(AUTO) 2.67 MIL/uL (4.20-6.10); RED CELL DISTRIBUTION WIDTH 20.8 % (11.6-13.7); WHITE BLOOD COUNT (AUTO) 15.1 K/uL (4.8-10.8)
[2021-11-15] MEDS: KCL 20 MEQ/WATER INJ PREMIX 100 ML IV PRN (06:57)
--- NOTE | 2021-11-15 07:30 | NUR ---
RECEIVED REPORT FROM ADELITA VALDEZ. PT IS AWAKE ALERT FOLLOW COMMAND, HE IS BREATHING ON ROOM AIR N SAT, 100% IV FLUID HAS PICC ON RT UPPER ARM , INFUSING K RIDER AT THE TIME, MARTINEZ CATH DRAIN SMALL AMOUT OF CLEAR YELLOW URINE. ABDOMEN REMAIN DISTENDED BUT LEST THAN BEFOR.
[2021-11-15] MEDS: TAMSULOSIN 0.4 MG CAP PO SCH (08:19)
[2021-11-15] MEDS: GENTAMICIN IV SCH (08:19)
[2021-11-15] MEDS: DEXTROSE 5% IV SCH (08:19)
[2021-11-15] MEDS: PANTOPRAZOLE 40 MG INJ VIAL IVP SCH (08:19)
[2021-11-15] MEDS: FERROUS SULFATE 325 MG TABEC PO SCH ×2 (08:19→17:11)
[2021-11-15] MEDS: FINASTERIDE 5 MG TAB PO SCH (08:20)
[2021-11-15] MEDS: SPIRONOLACTONE 50 MG TAB NG SCH (08:20)
[2021-11-15] MEDS ORDERED: FUROSEMIDE 20 MG TAB PO SCH (09:00)
--- NOTE | 2021-11-15 10:00 | NUR ---
VISIT BY DR. AMIN ORDER RECEIVED.
--- NOTE | 2021-11-15 11:30 | NUR ---
CALL TELE NURSE IGLESIA, GAVE REPORT REGARDINGPT. TRANSFER.
--- NOTE | 2021-11-15 13:00 | NUR ---
PICC LINE REMOVED PER HOUSE SUPERVISER MENDY.
--- NOTE | 2021-11-15 13:15 | NUR ---
TRANSFER TO RM 108B IN BED CONDITION STABLE DURING TRANSFER.
--- NOTE | 2021-11-15 13:16 | NUR ---
RECEIVED PT FROM ICU. AOX2, ABLE TO MAKE NEEDS KNOWN. NO C/O PAIN, NO SOB ON ROOM AIR
--- NOTE | 2021-11-15 14:00 | NUR ---
INSERTED IV RFA 24G. DUE MEDS GIVEN Addendum: 11/15/21 at 1658 by Kishor Burgos RN TIME 1600
--- NOTE | 2021-11-15 16:58 | NUR ---
PT RESTING IN BED. NO APPARENT DISTRESS
--- NOTE | 2021-11-15 18:21 | NUR ---
PT EATING DINNER, TOLERATING MECH SOFT GROUND
--- NOTE | 2021-11-15 19:30 | NUR ---
RECEIVED REPORT FROM DAY SHIFT NURSE FOR CONTINUITY OF CARE. PT AWAKE, ALERT AND ORIENTED. ON ROOM AIR, BREATHING EQUAL AND UNLABORED.AFEBRILE. NO S/SX OF DISTRESS AT THIS TIME. DENIES PAIN. IV ON R FA G24, PATENT AND INTACT. ALL PRECAUTIONS IN PLACE. CALL LIGHT WITHIN REACH.WILL CONTINUE TO MONITOR.
--- NOTE | 2021-11-15 20:22 | NUR ---
PT LAYING IN BED HOB ELEVATED, BS CLEAR DIMINISHED THROUGHOUT, NO SIGNS OF RESPIRATORY DISTRESS NOTED AT THIS TIME. PT IS CURRENTLY SATING 100% ON RA. ADMINISTERED HHN TX WITH SVN PLUS MASK. NO ADVERSE EFFECTS NOTED PT TOLERATED WELL. WILL CONTINUE TO MONITOR.
--- NOTE | 2021-11-15 20:30 | NUR ---
PT CLEANED AND CHANGED. PT TOLERATED WELL. NO COMPLAINS AT THIS TIME.WILL CONTINUE TO MONITOR
[2021-11-16] VITALS: BP 103/64
--- NOTE | 2021-11-16 | NUR ---
SCHEDULED ANTIBIOTICS GIVEN. PT TOLERATED WELL. NO DISTRESS NOTED.
[2021-11-16] MEDS: MENTHOL/ZINC OXIDE 113 GM TUBE TP SCH ×2 (01:11→12:15)
--- NOTE | 2021-11-16 03:00 | NUR ---
PT ASLEEP. VISIBLE CHEST RISE AND FALL NOTED. NO DISTRESS NOTED. WILL CONTINUE TO MONITOR.
[2021-11-16 04:00] VITALS: BP 114/71
[2021-11-16] MEDS: ALBUTEROL SULFATE/IPRATROPIU 3 ML SOL IH SCH ×6 (04:33→23:23)
[2021-11-16] MEDS: AMPICILLIN/SULBACTAM 3 GM in NACL 0.9% 100 ML IV SCH ×4 (05:22→23:42)
[2021-11-16 06:11] LABS: BASOPHILS # (AUTO) 0.1 K/uL (0.00-0.22); BASOPHILS % (AUTO) 0.8 % (0.0-2.0); EOSINOPHILS # (AUTO) 0.2 K/uL (0-0.4); HEMATOCRIT 23.4 % (36-52); HEMOGLOBIN 7.5 g/dL (12.0-18.0); LYMPHOCYTES # (AUTO) 1.9 K/uL (2.0-11.5); LYMPHOCYTES % (AUTO) 16.4 % (20.5-51.1); MEAN CORPUSCULAR HEMOGLOBIN 29 pg (27-31); MEAN CORPUSCULAR HGB CONC 32 g/dL (33-37); MEAN CORPUSCULAR VOLUME 89.2 fL (80-94); MONOCYTES # (AUTO) 1.5 K/uL (0.8-1.0); MONOCYTES % (AUTO) 12.7 % (1.7-9.3); NEUTROPHILS # (AUTO) 7.9 K/uL (1.8-7.7); NEUTROPHILS % (AUTO) 68.1 % (42.2-75.2); PLATELET COUNT (AUTO) 384 K/uL (140-450); RED BLOOD CELL COUNT(AUTO) 2.62 MIL/uL (4.20-6.10); RED CELL DISTRIBUTION WIDTH 20.8 % (11.6-13.7); WHITE BLOOD COUNT (AUTO) 11.6 K/uL (4.8-10.8)
[2021-11-16] MEDS: MIDODRINE 5 MG TAB NG SCH ×3 (06:26→18:03)
--- NOTE | 2021-11-16 06:34 | NUR ---
PT IS STABLE. NO ACUTE EVENTS THROUGHOUT THE NIGHT. NO S/SX OF DISTRESS AT THIS MOMENT. ALL NEEDS ATTENDED. ALL PRECAUTIONS IN PLACE. CALL LIGHT WITHIN REACH. WILL ENDORSE TO AM SHIFT NURSE.
[2021-11-16 07:12] LABS: ANION GAP 8.2 (8-16); CARBON DIOXIDE 28.4 mmol/L (21-32); CREATININE 0.8 mg/dL (0.6-1.3); POTASSIUM 3.6 mmol/L (3.5-5.1)
--- NOTE | 2021-11-16 07:20 | NUR ---
RECEIVED BEDSIDE REPORT FROM RETOUCHER NURSE FOR CONTINUITY OF CARE. PT IS AWAKE, A&OX4. ON RA WITH BREATHING UNLABORED. FAROESE SPEAKING. ST ON TELE MONITOR. MARTINEZ CATH IN PLACE DRAINING CLEAR, YELLOW URINE. IV IN PLACE IN THE RIGHT FOREARM SALINE LOCKED. PT IS STABLE. PLAN OF CARE DISCUSSED.
[2021-11-16 08:00] VITALS: BP 124/71
[2021-11-16] MEDS: FERROUS SULFATE 325 MG TABEC PO SCH ×2 (08:34→16:32)
[2021-11-16] MEDS: TAMSULOSIN 0.4 MG CAP PO SCH (08:34)
[2021-11-16] MEDS: PANTOPRAZOLE 40 MG INJ VIAL IVP SCH (08:35)
[2021-11-16] MEDS: SPIRONOLACTONE 50 MG TAB NG SCH (08:35)
[2021-11-16] MEDS: FINASTERIDE 5 MG TAB PO SCH (08:35)
[2021-11-16] MEDS: FUROSEMIDE 40 MG/4 ML VIAL IVP SCH (08:46)
[2021-11-16] MEDS: THIAMINE 100 MG TAB PO SCH (08:46)
[2021-11-16] MEDS: MULTIVITAMIN 1 TAB PO SCH (08:47)
--- NOTE | 2021-11-16 09:00 | NUR ---
IV WAS INFILTRATED IN THE LEFT FA AND WAS REMOVED. NEW IV PLACED BY MOBILE ENGINEERJOSÉ MIGUEL GUZMAN IN THE LEFT WRIST 22 GAUGE. PT TOLERATED IT WELL. FLUSHING AND PATENT.
--- NOTE | 2021-11-16 10:00 | NUR ---
PT IS SITTING UP IN BED. PT HAD A BOWEL MOVEMENT AND WAS CHANGED/REPOSITIONED. BM WAS SOFT AND BROWN IN COLOR. NO DISTRESS NOTED. WILL CONTINUE TO MONITOR.
[2021-11-16 12:00] VITALS: BP 104/54
--- NOTE | 2021-11-16 12:00 | NUR ---
PT IS STABLE. NO DISTRESS NOTED. ON RA WITH BREATHING UNLABORED. PT DENIES ANY PAIN. WILL CONTINUE TO MONITOR.
--- NOTE | 2021-11-16 13:49 | NUR ---
ROUNDED ON PT. HE IS ASLEEP. CHEST RISE AND FALL SYMMETRICAL. NO DISTRESS NOTED. PT IS STABLE. IV IS PATENT AND INTACT.
--- NOTE | 2021-11-16 14:28 | NUR ---
11/16/21 RD FOLLOW UP COMPLETED PLEASE REFER TO NUTRITION ASSESSMENT UNDER CARE ACTIVITY FOR ESTIMATED NUTRITIONAL NEEDS. 1. CONTINUE MECHANICAL SOFT GROUND DIET TOLERATED 2. RECOMMEND ISAAC BID AND ENSURE PER RD PROTOCOL 3. RD TO FOLLOW-UP 2-3 DAYS, HIGH RISK GEOVANNA BUTT, RD
--- NOTE | 2021-11-16 14:45 | NUR ---
WOUND CARE RE-EVALUATION NOTE: PT. KUSUM WITH LOW EVE SCALE AT MODERATE TO HIGH RISK, CONTINUE TO FOLLOW PRESSURE INJURY PREVENTION INTERVENTIONS. PTS WOUND DRESSING CONTAMINATED WITH SOILING STOOL, WOUND BEDS ARE SOILING WITH STOOL. AREA CLEANS, DRY DRESSING APPLIED. -PRESSURE INJURY STAGE 2 RIGHT BUTTOCK CLOSE TO COCCYX PREVIOUS SEVERE MAD WITH TISSUE DESTRUCTION TODAY'S A PRESSURE INJURY STAGE 2 3X2X0.1CM WOUND BED MOIST, NO ODOR, WOUND EDGE FLAT, EZE-WOUND SKIN INTACT. -SEVERE MOISTURE ASSOCIATED DERMATITIS TO LEFT BUTTOCK MULTIPLE EROSIONS IMPROVING WITH LARGEST 2X3CM SUPERFICIAL DEPTH, WOUND BED PINK AND MOIST, NO ODOR , EZE-WOUND SKIN INTACT. RECOMMENDATIONS: -PLEASE CONTINUE CALMOSEPTINE CR. TO BUTTOCKS AND COVER WITH FOAM DRESSING,QD AND PRN IF SOILING. PLEASE KEEP AREA DRY AND CLEAN. -POSITIONING: TURN AND REPOSITION PATIENT Q 2H OR SOONER USE PILLOWS TO KEEP BONY PROMINENCES FROM DIRECT CONTACT WITH SURFACES USE REPOSITIONING WEDGES TO PROVIDE 30-DEGREE ANGLE FOR SIDE LYING POSITIONS OFFLOADING OR FOAM DRESSING TO ALL TUBING TO PREVENT MEDICAL DEVICES RELATED PRESSURE INJURY -RE-EVALUATING AND MANAGING INCONTINENCE MONITOR SKIN CONDITION DURING POSITION CHANGE DO NOT MASSAGE REDNESS, BONY PROMINENCES, DO NOT USE DONUT-TYPE DEVICES FREQUENT EZE-CARE AND PROVIDE BARRIER CREAMS PRN IF SOILING MOISTURE CONTROL BY OFFER BED BACON/URINAL /ABSORBENT PAD TO WICK AND HOLD MOISTURE KEEP SKIN DRY AND PROTECT FROM FRICTION -MANAGE FRICTION/SHEAR/MOBILITY KEEP HOB AT THE LOWEST LEVEL OF ELEVATION NO MORE THAN 30 DEGREE UNLESS OTHERWISE CONTRAINDICATED USE LIFT SHEET OR TRANSFER DEVICE TO MOVE PATIENT AND PREVENT LATERAL SHEER. PROTECT HEELS, ELBOWS BONY PROMINENCES WITH SKIN BERRIES OR FOAM DRESSING IF EXPOSED TO FRICTION OFFLOAD BILATERAL HEELS BY PLACING PILLOWS UNDER CALVES AT ALL TIMES, UNLESS OTHERWISE CONTRAINDICATED -PRESSURE REDISTRIBUTION SURFACE THERAPY,ROMAN ISOFLEX MATTRESS -NUTRITION: PLEASE FOLLOW RD RECOMMENDATIONS AND OFFER NUTRITION SUPPLEMENTS IF ORDERED.
[2021-11-16 16:00] VITALS: BP 110/63
--- NOTE | 2021-11-16 17:00 | NUR ---
PT WAS REPOSITIONED. NO DISTRESS NOTED. PT DENIES PAIN. IV IS IN PLACE AND INTACT. BED ALARM ON. WILL CONTINUE TO MONITOR.
--- NOTE | 2021-11-16 18:58 | NUR ---
ASSESSED PT AT BEDSIDE. PT IS ON 2L OXYMIZER. OXYGEN STAT IS 93%. PT IS TOLERATING WELL AT THIS TIME. NO RESPIRATORY DISTRESS AT THIS TIME. WILL CONTINUE TO MONITOR. Addendum: 11/16/21 at 1918 by Joshua Javier RT WRONG DOCUMENTATION.
--- NOTE | 2021-11-16 19:15 | NUR ---
ENDORSED PT TO SHOP AND ALTERATION TAILOR NURSE FOR CONTINUITY OF CARE. PT IS STABLE. PLAN OF CARE DISCUSSED.
--- NOTE | 2021-11-16 19:16 | NUR ---
RECEIVED BEDSIDE REPORT FROM DAY RN. PT IS OBSERVED LAYING IN BED WITH EYES CLOSED APPEARS TO BE ASLEEP. CHEST RISE AND FALL NOTED. NO S/SX OF DISTRESS. ON ROOM AIR. IV LFA 22G TKO. MARTINEZ CATH IN PLACE DRAINING YELLOW URINE. SKIN IS WARM AND DRY. NON INTACT PER REPORT. ADAM BUTTOCK WOUND. SAFETY MEASURES ARE IN PLACE. WILL CONTINUE TO MONITOR.
--- NOTE | 2021-11-16 19:18 | NUR ---
ASSESSED PT AT BEDSIDE. PT IS ON ROOM AIR. OXYGEN STAT IS 94%. SCHEDULED DUO TREATMENT GIVEN. PT IS TOLERATING WELL AT THIS TIME. NO RESPIRATORY DISTRESS AT THIS TIME. WILL CONTINUE TO MONITOR.
[2021-11-16 20:00] VITALS: BP 105/55
--- NOTE | 2021-11-16 21:11 | NUR ---
PT AWAKE RESTING COMFORTABLY IN BED WATCHING TV. ALL NEEDS MET. CALL LIGHT IS WITHIN REACH.
--- NOTE | 2021-11-16 23:28 | NUR ---
ASSESSED PT AT BEDSIDE. PT IS ON ROOM AIR. OXYGEN STAT IS 97%. SCHEDULED DUO TREATMENT GIVEN. PT IS TOLERATING WELL AT THIS TIME. NO RESPIRATORY DISTRESS AT THIS TIME. WILL CONTINUE TO MONITOR.
[2021-11-17] VITALS: BP 96/61
--- NOTE | 2021-11-17 00:18 | NUR ---
VITAL SIGNS ARE WITHIN NORMAL LIMITS. DENIES PAIN. RESPIRATIONS ARE EQUAL AND UNLABORED ON ROOM AIR. ALL NEEDS MET. CALL LIGHT IS WITHIN REACH.
[2021-11-17] MEDS: MENTHOL/ZINC OXIDE 113 GM TUBE TP SCH ×2 (01:06→13:00)
--- NOTE | 2021-11-17 02:06 | NUR ---
ROUNDS MADE. PT OBSERVED LAYING IN BED WITH EYES CLOSED APPEARS TO BE ASLEEP. CHEST RISE AND FALL NOTED. CALL LIGHT IS WITHIN REACH.
[2021-11-17] MEDS: ALBUTEROL SULFATE/IPRATROPIU 3 ML SOL IH SCH ×6 (03:49→23:42)
[2021-11-17 04:00] VITALS: BP 110/72
--- NOTE | 2021-11-17 04:00 | NUR ---
VITAL SIGNS ARE WITHIN NORMAL LIMITS. PT IS AWAKE RESTING COMFORTABLY IN BED WATCHING TV. DENIES ANY DISCOMFORT.
--- NOTE | 2021-11-17 05:21 | NUR ---
SPOKE WITH CHANI FROM [facility]. CHANI REQUESTING UPDATE REGARDING IMAGING CD. EXPLAIN TO CHANI PER NOTES IMAGING CD WAS SENT YESTERDAY VIA [employer] AND DELIVERED AT 1500. EXPLAIN TO CHANI PER NOTES YESTERDAY AT 1518 THEY SPOKE WITH QUEENIE WHO STATED SHE RECEIVED THE IMAGING CD AND TOOK IT TO THE RADIOLOGY DEPT. SHE WILL DOUBLE CHECK THE CHART FOR IMAGING CD AND CALL BACK IF THERE IS FURTHER QUESTIONS.
[2021-11-17] MEDS: AMPICILLIN/SULBACTAM 3 GM in NACL 0.9% 100 ML IV SCH ×3 (06:23→18:10)
[2021-11-17] MEDS: MIDODRINE 5 MG TAB NG SCH ×3 (06:23→12:08)
[2021-11-17 06:29] LABS: BASOPHILS # (AUTO) 0.1 K/uL (0.00-0.22); BASOPHILS % (AUTO) 1.1 % (0.0-2.0); EOSINOPHILS # (AUTO) 0.2 K/uL (0-0.4); HEMATOCRIT 22.1 % (36-52); HEMOGLOBIN 7.3 g/dL (12.0-18.0); LYMPHOCYTES # (AUTO) 1.4 K/uL (2.0-11.5); LYMPHOCYTES % (AUTO) 16.2 % (20.5-51.1); MEAN CORPUSCULAR HEMOGLOBIN 29 pg (27-31); MEAN CORPUSCULAR HGB CONC 33 g/dL (33-37); MEAN CORPUSCULAR VOLUME 88.4 fL (80-94); MONOCYTES # (AUTO) 1.5 K/uL (0.8-1.0); MONOCYTES % (AUTO) 17.1 % (1.7-9.3); NEUTROPHILS # (AUTO) 5.7 K/uL (1.8-7.7); NEUTROPHILS % (AUTO) 63.6 % (42.2-75.2); PLATELET COUNT (AUTO) 433 K/uL (140-450); RED BLOOD CELL COUNT(AUTO) 2.51 MIL/uL (4.20-6.10); RED CELL DISTRIBUTION WIDTH 20.5 % (11.6-13.7); WHITE BLOOD COUNT (AUTO) 8.9 K/uL (4.8-10.8)
[2021-11-17 06:32] LABS: ANION GAP 7.5 (8-16); CARBON DIOXIDE 28.9 mmol/L (21-32); CREATININE 0.9 mg/dL (0.6-1.3); POTASSIUM 3.4 mmol/L (3.5-5.1)
--- NOTE | 2021-11-17 07:07 | NUR ---
GAVE BEDSIDE REPORT TO DAY RN. PT ENDORSED IN STABLE CONDITION.
--- NOTE | 2021-11-17 07:10 | NUR ---
RECEIVED REPORT FROM PLATEMAN NURSE FOR CONTINUITY OF CARE. PT AWAKE IN BED WITH CONFUSION, LATVIAN SPEAKING. BREATHING SYMMETRICAL ON ROOM AIR. WITH LARGE ROUND FIRM DISTENDED ABDOMEN. LFA 22G RUNNING NS AT 5CC/HR. WITH MARTINEZ CATHETER FOR URINARY RETENTION, INTACT AND PATENT DRAINING YELLOW URINE. NO C/O PAIN OR DISCOMFORT AT THIS TIME. CALL LIGHT WITHIN REACH. ALL SAFETY MEASURES IN PLACE.
[2021-11-17 08:00] VITALS: BP 121/63
[2021-11-17] MEDS: GENTAMICIN IV SCH (08:46)
[2021-11-17] MEDS: DEXTROSE 5% IV SCH (08:46)
[2021-11-17] MEDS: PANTOPRAZOLE 40 MG INJ VIAL IVP SCH (08:48)
[2021-11-17] MEDS: FUROSEMIDE 40 MG/4 ML VIAL IVP SCH (08:52)
[2021-11-17] MEDS: SPIRONOLACTONE 50 MG TAB NG SCH (09:00)
[2021-11-17] MEDS: FERROUS SULFATE 325 MG TABEC PO SCH ×2 (09:00→17:42)
[2021-11-17] MEDS: TAMSULOSIN 0.4 MG CAP PO SCH (09:00)
[2021-11-17] MEDS: MULTIVITAMIN 1 TAB PO SCH (09:00)
[2021-11-17] MEDS: THIAMINE 100 MG TAB PO SCH (09:00)
[2021-11-17] MEDS: FINASTERIDE 5 MG TAB PO SCH (09:01)
[2021-11-17] MEDS: KCL 20 MEQ/WATER INJ PREMIX 100 ML IV PRN (09:57)
--- NOTE | 2021-11-17 10:09 | NUR ---
PT IN BED AWAKE, ABLE TO FEED SELF WITH TRAY SET UP ASSISTANCE. BREATHING SYMMETRICAL ON ROOM AIR. DENIES PAIN AT THIS TIME. PRN K GIVEN FOR K LEVEL 3.4. CALL LIGHT WITHIN REACH. ALL SAFETY MEASURES IN PLACE.
[2021-11-17 12:00] VITALS: BP 108/72
[2021-11-17] MEDS: ACETAMINOPHEN 325 MG TAB PO PRN (12:12)
--- NOTE | 2021-11-17 14:30 | NUR ---
PT ASLEEP IN BED. BREATHING SYMMETRICAL ON ROOM AIR. FLACC O. FREQUENT ROUNDS DONE
[2021-11-17 16:00] VITALS: BP 102/66
--- NOTE | 2021-11-17 19:10 | NUR ---
ENDORSED PT TO COOK FISH EGGS NURSE. PT IN STABLE CONDITION
--- NOTE | 2021-11-17 19:52 | NUR ---
WHILE ON THE TIME OF ROUNDS ENDORSEMENT - NURSE ROSA CHECKING THE PT'S BP - SHE GAVE DUE MED : PROAMENTINE 5MG/TAB . - I AND MY ORIENTEE WITNESSING NURSE SIS GAVE THAT MEDICINE .
[2021-11-17 20:00] VITALS: BP 90/60
--- NOTE | 2021-11-17 22:16 | NUR ---
PER DR BRICE - HE WILL NOT ACCEPT THE PT . FOR SURGERY - WILL INFORM THE DOCTOR AND WILL ENDORSE . Addendum: 11/17/21 at 2339 by Kimberley Lantigua RN DR Elizabeth GRIMALDO RESPONDED " OK " - CARLEE
[2021-11-18] VITALS: BP 105/60
[2021-11-18] MEDS: MENTHOL/ZINC OXIDE 113 GM TUBE TP SCH ×2 (00:50→12:29)
[2021-11-18] MEDS: AMPICILLIN/SULBACTAM 3 GM in NACL 0.9% 100 ML IV SCH ×4 (00:57→18:06)
--- NOTE | 2021-11-18 02:00 | NUR ---
BP RE CHECK 115/71 - NO COMPLAIN MADE , ON TELE MONITOR , CALL LIGHT WITHIN REACH .
[2021-11-18] MEDS: ALBUTEROL SULFATE/IPRATROPIU 3 ML SOL IH SCH ×4 (03:05→15:00)
[2021-11-18 04:00] VITALS: BP 100/60
[2021-11-18 06:48] LABS: BASOPHILS # (AUTO) 0.1 K/uL (0.00-0.22); BASOPHILS % (AUTO) 1.3 % (0.0-2.0); EOSINOPHILS # (AUTO) 0.1 K/uL (0-0.4); EOSINOPHILS % (AUTO) 1.4 % (0.0-4.0); HEMATOCRIT 23.1 % (36-52); HEMOGLOBIN 7.6 g/dL (12.0-18.0); LYMPHOCYTES # (AUTO) 1.3 K/uL (2.0-11.5); LYMPHOCYTES % (AUTO) 16.5 % (20.5-51.1); MEAN CORPUSCULAR HEMOGLOBIN 29 pg (27-31); MEAN CORPUSCULAR HGB CONC 33 g/dL (33-37); MEAN CORPUSCULAR VOLUME 88.3 fL (80-94); MONOCYTES # (AUTO) 1.4 K/uL (0.8-1.0); MONOCYTES % (AUTO) 17.2 % (1.7-9.3); NEUTROPHILS % (AUTO) 63.6 % (42.2-75.2); PLATELET COUNT (AUTO) 497 K/uL (140-450); RED BLOOD CELL COUNT(AUTO) 2.62 MIL/uL (4.20-6.10); RED CELL DISTRIBUTION WIDTH 20.8 % (11.6-13.7); WHITE BLOOD COUNT (AUTO) 7.9 K/uL (4.8-10.8)
[2021-11-18 06:54] LABS: ANION GAP 8.8 (8-16); CARBON DIOXIDE 29.6 mmol/L (21-32); CREATININE 1.1 mg/dL (0.6-1.3); POTASSIUM 3.4 mmol/L (3.5-5.1)
[2021-11-18] MEDS: MIDODRINE 5 MG TAB NG SCH ×3 (07:00→18:59)
--- NOTE | 2021-11-18 07:42 | NUR ---
ENDORSED - PT - STABLE . LATEST BP 130/75
--- NOTE | 2021-11-18 07:43 | NUR ---
RECEIVED BEDSIDE REPORT FROM THREAD SINGER NURSE FOR CONTINUITY OF CARE. PT IS OBSERVED LAYING IN BED WITH EYES CLOSED APPEARS TO BE ASLEEP. CHEST RISE AND FALL NOTED. NO S/S OF RESPIRATORY DISTRESS NOTED. ON ROOM AIR. IV LFA 22G TKO. MARTINEZ CATH IN PLACE DRAINING YELLOW URINE. SKIN IS WARM, DRY, AND NON-INTACT. NOTED DRESSING ON SACRAL AREA. DENIES PAIN AT THE MOMENT. PLAN OF CARE DISCUSSED. SAFETY MEASURES ARE IN PLACE. CALL LIGHT WITHIN REACH. WILL CONTINUE TO MONITOR.
[2021-11-18 08:00] VITALS: BP 123/79
[2021-11-18] MEDS: FUROSEMIDE 40 MG/4 ML VIAL IVP SCH (09:09)
[2021-11-18] MEDS: PANTOPRAZOLE 40 MG INJ VIAL IVP SCH (09:09)
[2021-11-18] MEDS: TAMSULOSIN 0.4 MG CAP PO SCH (09:10)
[2021-11-18] MEDS: FERROUS SULFATE 325 MG TABEC PO SCH ×2 (09:10→16:57)
[2021-11-18] MEDS: SPIRONOLACTONE 50 MG TAB NG SCH (09:10)
[2021-11-18] MEDS: MULTIVITAMIN 1 TAB PO SCH (09:10)
[2021-11-18] MEDS: FINASTERIDE 5 MG TAB PO SCH (09:11)
[2021-11-18] MEDS: THIAMINE 100 MG TAB PO SCH (09:11)
--- NOTE | 2021-11-18 09:15 | NUR ---
ALL SCHEDULED MEDS GIVEN. PT IS STABLE. NO DISTRESS NOTED. WILL CONTINUE TO MONITOR.
--- NOTE | 2021-11-18 09:45 | NUR ---
WOUND CARE NURSE AT BEDSIDE.
--- NOTE | 2021-11-18 10:00 | NUR ---
WOUND CARE RE-EVALUATION NOTE: SKIN ASSESSMENT DONE WITH AVIS VALDEZ, RIGHT BUTTOCK PRESSURE INJURY 2.5X2X0.1CM WOUND BED PINK, MOIST. NO ODOR, EZE WOUND SKIN DRY AND INTACT, RESPONDING TO CALMOSEPTINE CR. AND FOAM DRESSING. RIGHT LOWER CHEST WALL S/P THORACENTESES DRESSING DRY CLEAN AND INTACT. POC DISCUSSED WITH JOSÉ MIGUEL ALBARRAN.
--- NOTE | 2021-11-18 10:00 | NUR ---
PT. KUSUM AT ICU WITH LOW EVE SCALE AT HIGH RISK, CONTINUE TO FOLLOW PRESSURE INJURY PREVENTION INTERVENTIONS. -POSITIONING: TURN AND REPOSITION PATIENT Q 2H OR SOONER USE PILLOWS TO KEEP BONY PROMINENCES FROM DIRECT CONTACT WITH SURFACES USE REPOSITIONING WEDGES TO PROVIDE 30-DEGREE ANGLE FOR SIDE LYING POSITIONS OFFLOADING OR FOAM DRESSING TO ALL TUBING TO PREVENT MEDICAL DEVICES RELATED PRESSURE INJURY -RE-EVALUATING AND MANAGING INCONTINENCE MONITOR SKIN CONDITION DURING POSITION CHANGE DO NOT MASSAGE REDNESS, BONY PROMINENCES, DO NOT USE DONUT-TYPE DEVICES FREQUENT EZE-CARE AND PROVIDE BARRIER CREAMS PRN IF SOILING MOISTURE CONTROL BY OFFER BED BACON/URINAL /ABSORBENT PAD TO WICK AND HOLD MOISTURE KEEP SKIN DRY AND PROTECT FROM FRICTION -MANAGE FRICTION/SHEAR/MOBILITY KEEP HOB AT THE LOWEST LEVEL OF ELEVATION NO MORE THAN 30 DEGREE UNLESS OTHERWISE CONTRAINDICATED USE LIFT SHEET OR TRANSFER DEVICE TO MOVE PATIENT AND PREVENT LATERAL SHEER. PROTECT HEELS, ELBOWS BONY PROMINENCES WITH SKIN BERRIES OR FOAM DRESSING IF EXPOSED TO FRICTION OFFLOAD BILATERAL HEELS BY PLACING PILLOWS UNDER CALVES AT ALL TIMES, UNLESS OTHERWISE CONTRAINDICATED -PRESSURE REDISTRIBUTION SURFACE THERAPY -NUTRITION: PLEASE FOLLOW RD RECOMMENDATIONS AND OFFER NUTRITION SUPPLEMENTS IF ORDERED. PLEASE CONTACT WOUND CARE NURSE FOR ANY QUESTION AND CHANGE OF WOUND CONDITION. Addendum: 11/18/21 at 1023 by Seble Workman RN (Grace) WRONG PT ENTRY.
[2021-11-18 12:00] VITALS: BP 91/65
[2021-11-18] MEDS ORDERED: POTASSIUM CHLORIDE 10 MEQ TABER PO PRN (12:00)
--- NOTE | 2021-11-18 13:00 | NUR ---
OBTAINED RAPID COVID TEST SAMPLE AND SENT DOWN TO LAB.
--- NOTE | 2021-11-18 13:15 | NUR ---
PHYSICAL THERAPIST AT PATIENT'S BEDSIDE
--- NOTE | 2021-11-18 14:56 | NUR ---
11/18/21 RD FOLLOW UP COMPLETED PLEASE REFER TO NUTRITION ASSESSMENT UNDER CARE ACTIVITY FOR ESTIMATED NUTRITIONAL NEEDS. 1. CONTINUE MECHANICAL SOFT GROUND DIET TOLERATED 2. CONTINUE ISAAC BID AND ENSURE PER RD PROTOCOL 3. RD TO FOLLOW-UP 3-5 DAYS, MODERATE RISK (DOWNGRADED D/T PT WITH IMPROVED PO INTAKE) GEOVANNA BUTT RD
[2021-11-18 16:00] VITALS: BP 106/65
--- NOTE | 2021-11-18 16:21 | NUR ---
PER CM VANESA CONRAD IS GOING TO [facility] ROOM 223A VIA [facility] BETWEEN [phone].
--- NOTE | 2021-11-18 17:24 | NUR ---
CONTACTED [facility] AND ENDORSED PATIENT REPORT TO JOSÉ MIGUEL BAZAN. NOTIFIED HER THAT PATIENT WILL BE TRANSPORTED BETWEEN 183 TO [phone] WITH [facility].
[2021-11-18] MEDS ORDERED: TAMS0.4C96 PO (17:32)
[2021-11-18] MEDS ORDERED: FER325 PO (17:32)
[2021-11-18] MEDS ORDERED: PRO5 NG (17:32)
[2021-11-18] MEDS ORDERED: ACET-1182 PO (17:32)
[2021-11-18] MEDS ORDERED: MENT1OIN22 TP (17:32)
[2021-11-18] MEDS ORDERED: FINA5TAB5 PO (17:32)
[2021-11-18] MEDS ORDERED: FURO-570 PO (17:32)
[2021-11-18] MEDS ORDERED: THIA-34 PO (17:32)
[2021-11-18] MEDS ORDERED: SPIR50TA NG (17:32)
[2021-11-18] MEDS ORDERED: MULT-405 PO (17:32)
[2021-11-18 17:47] VITALS: BP 106/65
--- NOTE | 2021-11-18 18:30 | NUR ---
ENDORSED DISCHARGE INSTRUCTIONS TO PATIENT. PT VERBALIZED UNDERSTANDING. UNABLE TO SIGN DUE TO CONDITION.
[2021-11-18] MEDS ORDERED: ALBUTEROL SULFATE/IPRATROPIU 3 ML SOL IH SCH (19:00)
--- NOTE | 2021-11-18 19:25 | NUR ---
[facility] AT PATIENT'S BEDSIDE. PT WILL BE TRANSFERRING TO [facility] IN ROOM [address] UNDER DR. AMIN. PT IS STABLE PRIOR TO DISCHARGE.
== END 2021-11-18 19:30 | DRG 720 ==
LOC: MED 18:03 → MTU 11-04 00:47 → MIC 11-08 15:30 → MTU 11-15 14:54
PROVIDERS: ADMIT Hospitalist; ATTEND Hospitalist
PROC: 02H633Z Insertion of Infusion Device into Right Atrium, Percutaneous Approach (ICD-10-PCS; 2021-11-08)
PROC: 0D9670Z Drainage of Stomach with Drainage Device, Via Natural or Artificial Opening (ICD-10-PCS; 2021-11-08)
PROC: 5A1955Z Respiratory Ventilation, Greater than 96 Consecutive Hours (ICD-10-PCS; principal; 2021-11-09)
PROC: 5A12012 Performance of Cardiac Output, Single, Manual (ICD-10-PCS; 2021-11-09)
PROC: 0BH17EZ Insertion of Endotracheal Airway into Trachea, Via Natural or Artificial Opening (ICD-10-PCS; 2021-11-09)
PROC: 0W9G3ZZ Drainage of Peritoneal Cavity, Percutaneous Approach (ICD-10-PCS; 2021-11-14)
DX: A41.81 Sepsis due to Enterococcus (principal); J96.00 Acute respiratory failure, unspecified whether with hypoxia or hypercapnia; I50.43 Acute on chronic combined systolic (congestive) and diastolic (congestive) heart failure; E43 Unspecified severe protein-calorie malnutrition; K65.9 Peritonitis, unspecified; J18.9 Pneumonia, unspecified organism; R57.9 Shock, unspecified; I42.9 Cardiomyopathy, unspecified; E87.1 Hypo-osmolality and hyponatremia; N39.0 Urinary tract infection, site not specified; M25.562 Pain in left knee; M25.561 Pain in right knee; G89.29 Other chronic pain; F10.10 Alcohol abuse, uncomplicated; I11.0 Hypertensive heart disease with heart failure; D50.9 Iron deficiency anemia, unspecified; N32.0 Bladder-neck obstruction; N32.89 Other specified disorders of bladder; E66.9 Obesity, unspecified; R00.1 Bradycardia, unspecified; I46.9 Cardiac arrest, cause unspecified; I34.0 Nonrheumatic mitral (valve) insufficiency; N32.3 Diverticulum of bladder; K70.31 Alcoholic cirrhosis of liver with ascites; Z20.822 Contact with and (suspected) exposure to COVID-19; F17.210 Nicotine dependence, cigarettes, uncomplicated; E83.42 Hypomagnesemia; Z59.00 Homelessness unspecified; Z68.26 Body mass index [BMI] 26.0-26.9, adult
CPT/HCPCS: 31500; 36415; 36600; 49083; 71045; 72193; 72194; 73562; 76700; 76705; 80048; 80053; 80170; 80305; 81001; 82140; 82150; 82272; 82803; 82945; 82948; 83036; 83540; 83605; 83615; 83690; 83735; 83880; 84100; 84154; 84157; 84484; 85025; 85610; 85730; 86886; 86900; 86901; 86920; 87040; 87070; 87075; 87081; 87086; 87186; 87205; 89051; 92610; 92950; 93005; 94002; 94003; 94640; 97110; 97116; 97163-GP; 97530; 99285; C9113; J0295; J0610; J0696; J1580; J1815; J1940; J1956; J2001; J2270; J2543; J2704; J2916; J3475; J3480; J3490; J7060; Q0092; Q9967; U0003

== ENCOUNTER 2022-01-07 16:32 | Emergency (ER) | payer SELFPAY ==
[~2022-01-07] VITALS: Ht 162.6 cm; Wt 62.1 kg
[~2022-01-07 16:32] MED LIST: ACET-1182 PO; FER325 PO; FINA5TAB5 PO; FURO-570 PO; MENT1OIN22 TP; MULT-405 PO; PRO5 NG; SPIR50TA NG; TAMS0.4C96 PO; THIA-34 PO
[2022-01-07 16:43] VITALS: BP 158/75
--- NOTE | 2022-01-07 17:23 | NUR ---
66 y/o male, pt was [facility]a from [facility], nurse states pt pulled out his cummings and needs new insertion. pt panamanian speaking, a&ox3 to name, and place, baseline does not ambulate gcs 15. pt states he is refusing cummings insertion stating it has been hurting him too much. upon assessment, abd is round/tender/distended. pt states he can void sometimes in urinal. skin is pink/cool/dry. lungs clear bl, heart rate even and regular. pt denies any fever, cp, sob, or cough at this time. pt states pain is 10/10 at this time. patient positioned for comfort. hob elevated. bed down. ermd made aware of pt. pmh: cirrhosis, enlarged prostate, diverticulum of bladder, htn, chf, asthma nka
[2022-01-07 17:26] LABS: BASOPHILS # (AUTO) 0.1 K/uL (0.00-0.22); BASOPHILS % (AUTO) 0.6 % (0.0-2.0); EOSINOPHILS % (AUTO) 0.3 % (0.0-4.0); HEMATOCRIT 31.3 % (36-52); LYMPHOCYTES # (AUTO) 1.8 K/uL (2.0-11.5); LYMPHOCYTES % (AUTO) 16.7 % (20.5-51.1); MEAN CORPUSCULAR HEMOGLOBIN 26 pg (27-31); MEAN CORPUSCULAR HGB CONC 32 g/dL (33-37); MEAN CORPUSCULAR VOLUME 80.5 fL (80-94); MONOCYTES # (AUTO) 0.6 K/uL (0.8-1.0); MONOCYTES % (AUTO) 5.5 % (1.7-9.3); NEUTROPHILS # (AUTO) 8.2 K/uL (1.8-7.7); NEUTROPHILS % (AUTO) 76.9 % (42.2-75.2); PLATELET COUNT (AUTO) 517 K/uL (140-450); RED BLOOD CELL COUNT(AUTO) 3.89 MIL/uL (4.20-6.10); RED CELL DISTRIBUTION WIDTH 18.5 % (11.6-13.7); WHITE BLOOD COUNT (AUTO) 10.6 K/uL (4.8-10.8)
[2022-01-07] MEDS ORDERED: LIDOCAINE JELLY 2% 30 ML TUBE TP ONE ×2 (17:42→18:15)
[2022-01-07 17:51] LABS: ANION GAP 15.5 (8-16); CARBON DIOXIDE 24.1 mmol/L (21-32); CREATININE 1.2 mg/dL (0.6-1.3); POTASSIUM 3.6 mmol/L (3.5-5.1); TOTAL BILIRUBIN 0.4 mg/dL (0.0-1.0)
--- NOTE | 2022-01-07 18:09 | NUR ---
# 18 FR Wade catheter with 10 ml utilizing sterile technique. Immediate return of 700ML RED urine noted. Bedside drainage bag placed below level of bladder. Urine sample collected and sent to lab. Pt tolerated procedure WELL.
[2022-01-07 18:33] LABS: APPEARANCE,URINE CLOUDY (CLEAR); BILIRUBIN,URINE 2+ (NEGATIVE); BLOOD, URINE 3+ (NEGATIVE); COLOR,URINE RED (YELLOW); LEUKOCYTE ESTERASE ,URINE 2+ (NEGATIVE); NITRITE, URINE POSITIVE (NEGATIVE); PH,URINE 6.5 (5.0-9.0); UGLUCOSE NEGATIVE (NEGATIVE)
[2022-01-07 18:54] LABS: RBC,URINE TOO NUMEROUS TO COUN /HPF (0-5); WBC,URINE TOO MANY TO COUNT /HPF (0-5)
[2022-01-07] MEDS ORDERED: CEPH-588 PO (19:30)
[2022-01-07 20:08] VITALS: BP 119/71
--- NOTE | 2022-01-07 20:08 | NUR ---
Patient discharged with v/s stable. Written and verbal after care instructions given on INdwelling cath and urinary retention and explained. Patient alert, oriented and verbalized understanding of instructions. Ambulatory with steady gait. All questions addressed prior to discharge. ID band removed. Patient advised to follow up with PMD. Rx of Keflex given.
--- NOTE | 2022-01-07 20:10 | NUR ---
Spoke to Melvi Guevara and updated on patient status. Nurse aware that patient will be arriving soon.
--- NOTE | 2022-01-07 20:10 | NUR ---
Pan Was[facility] called to arrange transportation. Patient will be going to [facility] in [place] via [facility] [employer] transport. waiting in [facility] for pickup. Report given and nurse Paola awaiting arrival.
--- NOTE | 2022-01-07 21:34 | NUR ---
The patient's care was reviewed and supervised by Ya Young RN. Chart checked.
== END 2022-01-07 20:10 | disposition home or self-care (01) ==
LOC: MED 16:32
DX: R33.9 Retention of urine, unspecified (principal); D64.9 Anemia, unspecified; Z46.6 Encounter for fitting and adjustment of urinary device; I11.0 Hypertensive heart disease with heart failure; I50.9 Heart failure, unspecified; J45.909 Unspecified asthma, uncomplicated; Z79.899 Other long term (current) drug therapy
CPT/HCPCS: 36415; 51702; 80053; 81001; 83690; 85025; 87086; 99285

== ENCOUNTER 2024-03-10 22:01 | Inpatient (IN) | payer MEDICAID ==
[~2024-03-10] VITALS: Ht 167.6 cm; Wt 81.6 kg
[~2024-03-10 22:01] MED LIST changes: +CEPH-588 PO
[2024-03-10 22:06] VITALS: BP 132/70; PULSE 94; RESP 18; TEMP 97.8; O2SAT 98
[2024-03-10 23:37] LABS: BASOPHILS # (AUTO) 0.2 K/uL (0.00-0.22); EOSINOPHILS # (AUTO) 0.2 K/uL (0-0.4); EOSINOPHILS % (AUTO) 2.7 % (0.0-4.0); HEMATOCRIT 34.4 % (36-52); LYMPHOCYTES # (AUTO) 3.5 K/uL (2.0-11.5); LYMPHOCYTES % (AUTO) 40.5 % (20.5-51.1); MEAN CORPUSCULAR HEMOGLOBIN 30 pg (27-31); MEAN CORPUSCULAR HGB CONC 32 g/dL (33-37); MEAN CORPUSCULAR VOLUME 93.3 fL (80-94); MONOCYTES # (AUTO) 0.9 K/uL (0.8-1.0); MONOCYTES % (AUTO) 10.7 % (1.7-9.3); NEUTROPHILS # (AUTO) 3.8 K/uL (1.8-7.7); NEUTROPHILS % (AUTO) 44.1 % (42.2-75.2); PLATELET COUNT (AUTO) 298 K/uL (140-450); RED BLOOD CELL COUNT(AUTO) 3.68 MIL/uL (4.20-6.10); RED CELL DISTRIBUTION WIDTH 14.2 % (11.6-13.7); WHITE BLOOD COUNT (AUTO) 8.7 K/uL (4.8-10.8)
[2024-03-10 23:38] LABS: APPEARANCE,URINE CLEAR (CLEAR); BILIRUBIN,URINE NEGATIVE (NEGATIVE); BLOOD, URINE 2+ (NEGATIVE); COLOR,URINE YELLOW (YELLOW); LEUKOCYTE ESTERASE ,URINE 3+ (NEGATIVE); NITRITE, URINE NEGATIVE (NEGATIVE); PROTEIN,URINE 3+ (NEGATIVE); UGLUCOSE NEGATIVE (NEGATIVE); UROBILINOGEN,URINE 0.2 EU/dL (0.2 - 1)
[2024-03-10 23:56] LABS: CALCIUM 9.4 mg/dL (8.5-10.1); CARBON DIOXIDE 19.2 mmol/L (21-32); CREATININE 3.2 mg/dL (0.6-1.3); POTASSIUM 5.2 mmol/L (3.5-5.1)
[2024-03-10 23:56] LABS: BACTERIA,URINE 10-30 (MOD) /HPF (None Seen); MUCUS,URINE 1+ /LPF (None Seen); SQUAMOUS EPITHELIAL CELL,UR 0-3 (FEW) /LPF (0-3 (FEW)); WBC,URINE TOO MANY TO COUNT /HPF (0-5)
[2024-03-11] MEDS ORDERED: cefTRIAXone 1,000 MG VIAL ONE (01:45)
[2024-03-11] MEDS: NACL 0.9% 1,000 ML IV ONE (04:11)
[2024-03-11 04:18] LABS: AMPHETAMINE, URINE NEGATIVE ng/ml (NEG <=1000); BARBITURATE, URINE NEGATIVE ng/ml (NEG <=200); BENZODIAZEPINE, URINE NEGATIVE ng/mL (NEG <=200); CANNABINOID, URINE NEGATIVE ng/mL (NEG <=50); COCAINE, URINE NEGATIVE ng/mL (NEG <=300); OPIATE, URINE NEGATIVE ng/mL (NEG <=2000); PHENCYCLIDINE SCREEN,URINE NEGATIVE ng/mL (NEG <=25)
[2024-03-11] MEDS ORDERED: ZOLPIDEM 5 MG TAB PO PRN (08:15)
[2024-03-11] MEDS ORDERED: LORazepam 1 MG TAB PO PRN (08:15)
[2024-03-11] MEDS ORDERED: ONDANSETRON 4 MG/2 ML VIAL IVP PRN (08:15)
[2024-03-11 09:00] VITALS: BP 106/62; PULSE 67; RESP 18; TEMP 96.5; O2SAT 100
[2024-03-11] MEDS: DEXT 5% /NACL 0.9% 1,000 ML IV SCH (09:20)
[2024-03-11 10:00] VITALS: PULSE 67; RESP 18; O2SAT 100
[2024-03-11] MEDS: DOCUSATE SODIUM 100 MG GELCAP PO SCH (10:05)
[2024-03-11] MEDS: PANTOPRAZOLE 40 MG INJ VIAL IVP SCH (11:54)
[2024-03-11 12:00] VITALS: BP 102/59; PULSE 72; RESP 18; TEMP 97.2; O2SAT 99
[2024-03-11] MEDS: AMPICILLIN/SULBACTAM 3 GM in NACL 0.9% 100 ML IV SCH (12:02)
[2024-03-11 16:00] VITALS: BP 107/59; PULSE 74; RESP 18; TEMP 97.8; O2SAT 99
[2024-03-11 20:00] VITALS: BP 106/56; PULSE 80; RESP 18; TEMP 97.2; O2SAT 98
[2024-03-11] MEDS: ACETAMINOPHEN 325 MG TAB PO PRN (20:49)
[2024-03-12 04:00] VITALS: BP 128/71; PULSE 70; RESP 18; TEMP 97.1; O2SAT 100
[2024-03-12] MEDS: LORazepam 1 MG TAB PO SCH (05:57)
[2024-03-12 07:22] LABS: BASOPHILS % (AUTO) 0.7 % (0.0-2.0); EOSINOPHILS # (AUTO) 0.2 K/uL (0-0.4); EOSINOPHILS % (AUTO) 2.4 % (0.0-4.0); HEMATOCRIT 33.7 % (36-52); HEMOGLOBIN 10.9 g/dL (12.0-18.0); LYMPHOCYTES # (AUTO) 2.2 K/uL (2.0-11.5); LYMPHOCYTES % (AUTO) 29.4 % (20.5-51.1); MEAN CORPUSCULAR HEMOGLOBIN 30 pg (27-31); MEAN CORPUSCULAR HGB CONC 32 g/dL (33-37); MEAN CORPUSCULAR VOLUME 92.5 fL (80-94); MONOCYTES # (AUTO) 0.9 K/uL (0.8-1.0); MONOCYTES % (AUTO) 12.2 % (1.7-9.3); NEUTROPHILS # (AUTO) 4.2 K/uL (1.8-7.7); NEUTROPHILS % (AUTO) 55.3 % (42.2-75.2); PLATELET COUNT (AUTO) 265 K/uL (140-450); RED BLOOD CELL COUNT(AUTO) 3.65 MIL/uL (4.20-6.10); RED CELL DISTRIBUTION WIDTH 14.1 % (11.6-13.7); WHITE BLOOD COUNT (AUTO) 7.6 K/uL (4.8-10.8)
[2024-03-12 08:00] VITALS: BP 112/54; PULSE 72; RESP 18; TEMP 97.5; O2SAT 99
[2024-03-12 08:25] LABS: ANION GAP 16.6 (8-16); CALCIUM 9.4 mg/dL (8.5-10.1); CARBON DIOXIDE 19.4 mmol/L (21-32); CREATININE 1.5 mg/dL (0.6-1.3)
[2024-03-12 08:30] LABS: ALBUMIN 3.5 g/dL (3.4-5.0); TOTAL BILIRUBIN 0.3 mg/dL (0.0-1.0); TOTAL PROTEIN, SERUM 8.2 g/dL (6.4-8.2)
[2024-03-12] MEDS: FOLIC ACID 1 MG TAB PO SCH (09:22)
[2024-03-12] MEDS: TAMSULOSIN 0.4 MG CAP PO SCH (09:22)
[2024-03-12] MEDS: THIAMINE 100 MG TAB PO SCH (09:23)
[2024-03-12] MEDS: MULTIVITAMIN 1 TAB PO SCH (09:23)
[2024-03-12 14:09] LABS: CREATININE,URINE RANDOM 144 mg/dL (30-125); URINE SODIUM, RANDOM 86 mmol/l (40-220)
[2024-03-12] MEDS: FLUCONAZOLE 100 MG TAB PO SCH (15:14)
[2024-03-12 16:00] VITALS: BP 115/58; PULSE 72; RESP 19; TEMP 97.5; O2SAT 100
[2024-03-12 20:00] VITALS: BP 128/68; PULSE 84; RESP 18; TEMP 97.7; O2SAT 100; O2SAT 99
[2024-03-13 04:00] VITALS: BP 129/74; PULSE 60; RESP 18; TEMP 96.7; O2SAT 100
[2024-03-13 07:36] LABS: BASOPHILS # (AUTO) 0.1 K/uL (0.00-0.22); BASOPHILS % (AUTO) 0.8 % (0.0-2.0); EOSINOPHILS # (AUTO) 0.2 K/uL (0-0.4); EOSINOPHILS % (AUTO) 2.7 % (0.0-4.0); HEMATOCRIT 30.5 % (36-52); HEMOGLOBIN 10.1 g/dL (12.0-18.0); LYMPHOCYTES # (AUTO) 2.2 K/uL (2.0-11.5); MEAN CORPUSCULAR HEMOGLOBIN 30 pg (27-31); MEAN CORPUSCULAR HGB CONC 33 g/dL (33-37); MONOCYTES # (AUTO) 0.9 K/uL (0.8-1.0); MONOCYTES % (AUTO) 13.9 % (1.7-9.3); NEUTROPHILS # (AUTO) 3.2 K/uL (1.8-7.7); NEUTROPHILS % (AUTO) 49.6 % (42.2-75.2); PLATELET COUNT (AUTO) 254 K/uL (140-450); RED BLOOD CELL COUNT(AUTO) 3.31 MIL/uL (4.20-6.10); WHITE BLOOD COUNT (AUTO) 6.5 K/uL (4.8-10.8)
[2024-03-13 07:58] LABS: ALBUMIN 3.2 g/dL (3.4-5.0); ANION GAP 14.3 (8-16); CALCIUM 9.5 mg/dL (8.5-10.1); CARBON DIOXIDE 20.6 mmol/L (21-32); CREATININE 1.3 mg/dL (0.6-1.3); POTASSIUM 4.9 mmol/L (3.5-5.1); TOTAL BILIRUBIN 0.2 mg/dL (0.0-1.0); TOTAL PROTEIN, SERUM 7.7 g/dL (6.4-8.2)
[2024-03-13 08:00] VITALS: BP 128/66; PULSE 66; RESP 18; TEMP 97.3; O2SAT 100
[2024-03-13] MEDS ORDERED: LEVO-481 PO (14:35)
[2024-03-13] MEDS ORDERED: FLUC100T PO (14:51)
[2024-03-13 15:36] VITALS: BP 128/66; PULSE 66; RESP 18; TEMP 97.3
[2024-03-13 16:00] VITALS: BP 132/69; PULSE 81; RESP 18; TEMP 97.3; O2SAT 100
== END 2024-03-13 18:30 | disposition home or self-care (01) | DRG 469 ==
LOC: MED 22:01 → MTU 03-11 08:13
PROVIDERS: ADMIT Student in an Organized Health Care Education/Training Program; ATTEND Student in an Organized Health Care Education/Training Program
DX: N17.9 Acute kidney failure, unspecified (principal); I13.0 Hypertensive heart and chronic kidney disease with heart failure and stage 1 through stage 4 chronic kidney disease, or unspecified chronic kidney disease; I50.9 Heart failure, unspecified; N39.0 Urinary tract infection, site not specified; E87.5 Hyperkalemia; N18.9 Chronic kidney disease, unspecified; N13.9 Obstructive and reflux uropathy, unspecified; F10.10 Alcohol abuse, uncomplicated; N40.0 Benign prostatic hyperplasia without lower urinary tract symptoms; Z87.891 Personal history of nicotine dependence; Z79.899 Other long term (current) drug therapy
CPT/HCPCS: 36415; 76770; 80048; 80053; 80305; 81001; 82570; 83605; 84300; 84484; 85025; 87040; 87081; 87086; 87491; 93005; 96374; 97116; 97163-GP; 99285; J0295; J0696; J1644; J2470; Q0092